=== PATIENT | male | born 1930 | race Hispanic/Latino ===

== ENCOUNTER 2017-12-27 17:50 | Inpatient (IN) | payer MEDICARE, OTHER ==
[~2017-12-27] VITALS: Ht 175.3 cm; Wt 94.8 kg
[~2017-12-27 17:50] MED LIST: AMLODIPINE BESYL5 MG PO; FLAGYL250 MG PO; HUMULIN R100 UNIT/2; LOPRESSOR25 MG PO; LOSARTAN POTASS25 MG PO; NORCO 10-325 T1 EACH PO; PREDNISONE5 MG PO; TAMSULOSIN HCL0.4 MG PO; ZYTIGA250 MG PO
[2017-12-27] MEDS ORDERED: METOPROLOL TARTRATE INJ 1 MG/ML VIAL IV NR ×2 (18:15→21:30)
[2017-12-27 18:27] VITALS: BP 124/81
[2017-12-27 18:30] VITALS: BP 117/85
[2017-12-27] MEDS ORDERED: VITAMIN D1000 UNI1 PO (18:42)
[2017-12-27 19:40] LABS: BASOPHILS % 0.4 % (0.0-1.0); EOSINOPHILS # (AUTO) 0.2 (0.0-0.4); HEMATOCRIT 41.5 % (38.2-49.6); HEMOGLOBIN 13.3 g/dL (14.0-18.0); LYMPHOCYTES # (AUTO) 1.1 (1.0-3.2); LYMPHOCYTES % 14.3 % (18.0-39.1); MEAN CORPUSCULAR HEMOGLOBIN 29.4 pg (28-32); MEAN CORPUSCULAR VOLUME 91.8 fL (81-99); MONOCYTES # (AUTO) 0.5 (0.2-0.8); MONOCYTES % 6.4 % (4.4-11.3); NEUTROPHILS # (AUTO) 5.6 (2.1-6.9); NEUTROPHILS % 75.5 % (38.7-80.0); PLATELET COUNT 229 x10e3/uL (140-360); RED BLOOD COUNT 4.52 x10e6/uL (4.3-5.7); RED CELL DISTRIBUTION WIDTH 15.9 % (11.7-14.4)
[2017-12-27 20:00] VITALS: BP_SYST 114; BP_SYST 117; BP_DIAS 80; BP_DIAS 85
[2017-12-27 20:00] LABS: ALBUMIN/GLOBULIN RATIO 0.9 (0.8-2.0); CALCIUM 9.4 mg/dL (8.4-10.2); CREATININE, SERUM 1.48 mg/dL (0.72-1.25)
[2017-12-27 20:21] LABS: FREE THYROXINE INDEX 2.6912 (1.4-3.8); THYROID STIMULATING HORMONE 1.464 uIU/mL (0.350-4.940)
[2017-12-27] MEDS ORDERED: METOPROLOL TARTRATE 50 MG TAB PO SCH (21:00)
--- NOTE | 2017-12-27 22:31 | Diagnostic Imaging Report ---
EXAM: CHEST SINGLE (PORTABLE), AP 1 view INDICATION: Congestive heart failure COMPARISON: None FINDINGS: LINES/TUBES: None LUNGS: No consolidations or edema. PLEURA: No effusions or pneumothorax. HEART AND MEDIASTINUM: Stable appearance. BONES AND SOFT TISSUES: No acute findings. IMPRESSION: No pulmonary edema. Signed by: Dr. Lilia Dailey M.D. on 12/27/2017 10:27 PM
[2017-12-27 23:00] VITALS: BP 123/92
[2017-12-28] VITALS (14 sets, daily range): BP systolic 117–171; BP diastolic 73–117
[2017-12-28 05:48] LABS: BASOPHILS % 0.5 % (0.0-1.0); EOSINOPHILS # (AUTO) 0.3 (0.0-0.4); EOSINOPHILS % 4.6 % (0.0-6.0); HEMATOCRIT 41.2 % (38.2-49.6); HEMOGLOBIN 13.2 g/dL (14.0-18.0); LYMPHOCYTES % 17.7 % (18.0-39.1); MEAN CORPUSCULAR HEMOGLOBIN 29.3 pg (28-32); MEAN CORPUSCULAR VOLUME 91.6 fL (81-99); MONOCYTES # (AUTO) 0.4 (0.2-0.8); MONOCYTES % 6.9 % (4.4-11.3); NEUTROPHILS # (AUTO) 4.1 (2.1-6.9); PLATELET COUNT 234 x10e3/uL (140-360)
[2017-12-28 06:11] LABS: ANION GAP 15.5 mmol/L (8-16); CALCIUM 9.4 mg/dL (8.4-10.2); CREATININE, SERUM 1.25 mg/dL (0.72-1.25); POTASSIUM 3.5 mmol/L (3.5-5.1)
[2017-12-28 06:24] LABS: CREATINE KINASE MB 0.9 ng/mL (0-5.0)
[2017-12-28] MEDS: METOPROLOL TARTRATE 50 MG TAB PO SCH ×2 (08:05→22:02)
[2017-12-28] MEDS ORDERED: METOPROLOL TART50 MG PO (12:59)
[2017-12-28] MEDS: HYDROCODONE/APAP 10MG-325MG TAB PO SCH ×3 (13:05→22:13)
[2017-12-28 13:28] LABS: ABG HCO3 29 mmol/L (23-28); ABG PCO2 42 mmHg (41-51); ABG PH 7.44 (7.31-7.41); ABG PO2 65 mmHg (80-105)
[2017-12-28] MEDS ORDERED: METOPROLOL TARTRATE INJ 1 MG/ML VIAL IV ONE (13:30)
[2017-12-28] MEDS ORDERED: POTASSIUM CHLORIDE 20 MEQ TAB CR PO ONE (13:30)
[2017-12-28] MEDS ORDERED: ENOXAPARIN 30 MG/0.3 ML SYR SC SCH (17:00)
[2017-12-28] MEDS ORDERED: HYDROCHLOROTHIAZIDE 25 MG TAB PO ONE (17:00)
[2017-12-29 00:08] VITALS: BP 143/68
[2017-12-29] MEDS: HYDROCODONE/APAP 10MG-325MG TAB PO SCH ×4 (03:43→13:11)
[2017-12-29 05:06] LABS: BASOPHILS % 0.8 % (0.0-1.0); EOSINOPHILS # (AUTO) 0.3 (0.0-0.4); EOSINOPHILS % 5.5 % (0.0-6.0); HEMATOCRIT 39.7 % (38.2-49.6); HEMOGLOBIN 12.6 g/dL (14.0-18.0); LYMPHOCYTES # (AUTO) 1.1 (1.0-3.2); LYMPHOCYTES % 22.5 % (18.0-39.1); MEAN CORPUSCULAR HGB CONC 31.7 g/dL (31-35); MEAN CORPUSCULAR VOLUME 91.5 fL (81-99); MONOCYTES # (AUTO) 0.4 (0.2-0.8); MONOCYTES % 8.1 % (4.4-11.3); NEUTROPHILS # (AUTO) 2.9 (2.1-6.9); NEUTROPHILS % 62.5 % (38.7-80.0); PLATELET COUNT 229 x10e3/uL (140-360); RED BLOOD COUNT 4.34 x10e6/uL (4.3-5.7); RED CELL DISTRIBUTION WIDTH 15.7 % (11.7-14.4)
[2017-12-29 05:35] LABS: CREATINE KINASE MB 0.8 ng/mL (0-5.0)
[2017-12-29 05:58] LABS: ANION GAP 14.6 mmol/L (8-16); BLOOD UREA NITROGEN 16 mg/dL (7-26); BUN/CREATININE RATIO 15 (6-25); CALCIUM 9.1 mg/dL (8.4-10.2); CARBON DIOXIDE 24 mmol/L (22-29); CHLORIDE 105 mmol/L (98-107); CREATININE, SERUM 1.07 mg/dL (0.72-1.25); EST GLOMERULAR FILTRATION RATE > 60 ML/MIN (60-); GLUCOSE 128 mg/dL (74-118); POTASSIUM 3.6 mmol/L (3.5-5.1); SODIUM 140 mmol/L (136-145)
[2017-12-29 06:58] VITALS: BP 147/91
[2017-12-29 07:50] VITALS: BP 147/91
[2017-12-29] MEDS: METOPROLOL TARTRATE 50 MG TAB PO SCH (08:46)
[2017-12-29] MEDS ORDERED: TAMSULOSIN HCL 0.4 MG CAP PO SCH (09:00)
[2017-12-29] MEDS ORDERED: PREDNISONE 10 MG TAB PO SCH (09:00)
[2017-12-29] MEDS ORDERED: HYDROCHLOROTHIAZIDE 25 MG TAB PO SCH (09:00)
[2017-12-29] MEDS ORDERED: POTASSIUM CHLORIDE 10 MEQ TABCR PO SCH (09:00)
[2017-12-29] MEDS ORDERED: CHOLECALCIFEROL 1,000 UNIT TAB PO SCH (09:00)
[2017-12-29 11:30] VITALS: BP 119/86
--- NOTE | 2017-12-30 17:31 | Discharge Summary ---
CLINICAL HISTORY: This is an 87-year-old white man admitted via my office because of shortness of breath with a heart rate of 133 to 150 beats per minute, which was thought to be supraventricular tachycardia or 2:1 atrial flutter. This patient's ejection fraction is normally in the range of 60% to 65%. He does have a dilated aortic root measuring 3.9 cm with mild aortic regurgitation. This was found not to be responsible for his complaints of chest pains. His O2 saturation on room air, however, remained at 97%. He is obese, elderly, and appears to be quite short of breath in my office. We, therefore, recommended that he be hospitalized. Please refer to my previous dictation concerning details of his history and physical at the time of admission. Following admission, we increased his metoprolol from 25 mg b.i.d. to 50 mg b.i.d. Additionally, we gave him IV metoprolol on several occasions to bring the heart rate down to the 80 to 90 range. He was symptomatically improved. His saturation remained stable. He was in a sinus rhythm and was able to get around a little bit over the weekend with the help of nurse. He was anxious to go home. His chest x-ray showed no pulmonary edema. He is, therefore, discharged on his previous medications with the metoprolol increased to 50 mg b.i.d. Other medications included tamsulosin 0.4 mg, prednisone 10 mg, hydrocodone/acetaminophen, and Zytiga 250 mg 4 tablets p.o. daily. He was given activity, diet, medication and followup instructions and will see Dr. Hathaway and me in 1 week. DISCHARGE DIAGNOSES: 1. Supraventricular tachycardia with ventricular rates of 133 to 150 beats per minute causing symptoms of shortness of breath, improved with increasing metoprolol as well as IV metoprolol. 2. Left ventricular ejection fraction in the range of 60% to 65%. 3. Dilated aortic root at 3.9 cm with mild aortic regurgitation. 4. Chest discomfort that may be related to tachycardia, also consider coronary artery disease. 5. Hypertension. 6. History of prostate cancer. 7. Peripheral vascular disease. 8. Anemia with history of a blood transfusion 2016 and with history of bone marrow biopsy. LEONEL JEANG, MD Job#: [id number] EV cc:KEYANNA HATHAWAY M.D.
--- NOTE | 2018-01-02 11:19 | History and Physical ---
CLINICAL HISTORY: This is an 87-year-old man admitted via my office because of worsening complaints of chest pains with exertion to the point that over the past 3 days he is only able to walk maybe 10 feet before getting short of breath. His heart rate in my office was in the range of 133 to 150 beats per minute, possibly in the multi-atrial tachycardia rhythm or supraventricular tachycardia rhythm or 2:1 atrial flutter. After discussing the various treatment alternatives, we elected to admit him to the hospital. In March 2017 his echocardiogram had showed ejection fraction 60% to 65%. He does have mildly enlarged aortic root measuring 3.9 cm with mild aortic regurgitation. He has history of atypical chest pains dating back to 2005. His nuclear stress test in 2016 was negative. He has history of multifocal atrial tachycardia but it was never this fast. He has worked in the [employer] for many years, but he only has smoked for 1 to 4 years. There is history of prostate cancer without metastases. Medications at home included Zytiga 250 mg 4 tablets p.o. daily, hydrocodone-acetaminophen 10/325 mg p.o. q.6 h., tamsulosin 0.4 mg p.o. daily, prednisone 10 mg p.o. daily, metoprolol tartrate 25 mg p.o. b.i.d. with food, vitamin D. PAST MEDICAL HISTORY: Is remarkable for the prostate cancer mentioned above, peripheral vascular disease, anemia, status post transfusion 4 units in the past. Bone marrow exam apparently was done once upon a time with unknown results. ALLERGIES: NONE KNOWN. PAST SURGERY: Included bilateral knee replacement 2005, cataract surgery 1984, orchiectomy, prostate cancer 2003, kidney stone with one functioning kidney, kidney surgery 2004, previous knee surgery dating back to 1999. HOSPITALIZATION: None other. FAMILY HISTORY: Father from old age. Mother unknown. Sibling alive at age 99. Brother had myocardial infarction, from myocardial infarction in his 90s. PERSONAL AND SOCIAL HISTORY: He smoked for 1 to 4 years, currently nonsmoker. REVIEW OF SYSTEMS: Noncontributory. PHYSICAL EXAMINATION GENERAL: He is elderly, appears to be chronically ill, somewhat short of breath at rest. VITAL SIGNS: Stable. Heart rate is 133, blood pressure 100/60, weighs pounds. CARDIAC: Jugular veins are not well seen. S1 and S2 are rapid and distant. There is a 1/6 systolic murmur. LUNGS: Show minimal crackles. ABDOMEN: Soft. Bowel sounds are present. EXTREMITIES: Show no cyanosis, clubbing or edema. LABORATORY STUDIES: Still pending. IMPRESSION 1. Multifocal atrial tachycardia, supraventricular tachycardia, rule out atrial flutter with 2:1 ventricular response with a ventricular rate 133 to 150 beats per minute. 2. History of multifocal atrial tachycardia. 3. Severe dyspnea with exertion with history of blood transfusion. 4. Rule out anemia. 5. Mild aortic regurgitation. 6. Dilated aortic root measuring 3.9 cm. 7. History of hypertension. 8. Advanced age. RECOMMENDATION: Hospitalization. Increase metoprolol including metoprolol IV to slow ventricular rate. Continue cardiac monitoring. Diuretics as needed. Job#: [id number] EV cc:KEYANNA SEQUEIRA MD
== END 2017-12-29 14:19 | disposition home or self-care (01) | DRG 310 ==
LOC: IMCU 17:50
PROVIDERS: ADMIT Internal Medicine Cardiovascular Disease; ATTEND Internal Medicine Cardiovascular Disease
DX: I47.1 Supraventricular tachycardia (principal); I48.92 Unspecified atrial flutter; I35.1 Nonrheumatic aortic (valve) insufficiency; Z79.01 Long term (current) use of anticoagulants; Z87.891 Personal history of nicotine dependence; I10 Essential (primary) hypertension; I73.9 Peripheral vascular disease, unspecified; D64.9 Anemia, unspecified; I77.819 Aortic ectasia, unspecified site; R07.9 Chest pain, unspecified; E66.9 Obesity, unspecified; Z68.30 Body mass index [BMI] 30.0-30.9, adult
CPT/HCPCS: 36415; 36600; 71045; 80048; 80053; 82550; 82553; 82805; 84436; 84443; 84479; 84484; 85025; 93005; J1650

== ENCOUNTER 2018-11-14 16:32 | Inpatient (IN) | payer MEDICARE, OTHER ==
[~2018-11-14] VITALS: Ht 175.3 cm; Wt 106.8 kg
[~2018-11-14 16:32] MED LIST changes: +METOPROLOL TART50 MG PO; +VITAMIN D1000 UNI1 PO
--- OUTSIDE RECORDS SUMMARY | 2018-11-14 16:35 | XMS REPORT ---
Author [facility] Address Unknown Phone Unavailable Care Team Providers Care Television Station Manager Name Role Phone Analia RANDLE Unavailable Unavailable Problems This patient has no known problems. Allergies, Adverse Reactions, Alerts This patient has no known allergies or adverse reactions. Medications This patient has no known medications. Results Test Description Test Time Test Comments Text Results Atomic Results Result Comments CHEST SINGLE (PORTABLE) 2017-12-27 22:27:00 [place] [address] Patient Name: CARRI PDARON MR #: [id number] : 1930 Age/Sex: 87/M Req #: [id number] Adm Physician: LEONEL RANDLE MD Ordered by: LEONEL RANDLE MD Report #: [id number] Location: [facility] Room/Bed: [place] [address] Procedure: [id number] DX/CHEST SINGLE (PORTABLE) Exam Date: 12/27/17 Exam Time: 2143 REPORT STATUS: Signed EXAM: CHEST SINGLE (PORTABLE), AP 1 view INDICATION: Congestive heart failure COMPARISON: None FINDINGS: LINES/TUBES: None LUNGS: No consolidations or edema. PLEURA: No effusions or pneumothorax. HEART AND MEDIASTINUM: Stable appearance. BONES AND SOFT TISSUES: No acute findings. IMPRESSION: No pulmonary edema. Signed by: Dr. Margaret Dailey M.D. on 12/27/2017 10:27 PM Dictated By: MARGARET DAILEY MD 26 Transcribed By: JORGE A on 12/27/172226 COPY TO: LEONEL RANDLE MD
--- NOTE | 2018-11-14 17:25 | NUR ---
STRAIGHT CATH INSERTED VIA ASEPTIC TECHNIQUE FOR UA FOR MD ORDERS; PT URINE OUTPUT APPROX 20 CC; URINE COLLECTED AND SENT TO LAB
[2018-11-14] MEDS ORDERED: METOPROLOL TART25 MG PO (17:53)
[2018-11-14] MEDS ORDERED: TYLENOL WITH C1 EACH PO (17:55)
[2018-11-14 18:11] LABS: BASOPHILS % 0.4 % (0.0-1.0); EOSINOPHILS # (AUTO) 0.2 (0.0-0.4); EOSINOPHILS % 2.4 % (0.0-6.0); HEMATOCRIT 38.3 % (38.2-49.6); HEMOGLOBIN 11.3 g/dL (14.0-18.0); LYMPHOCYTES # (AUTO) 0.6 (1.0-3.2); LYMPHOCYTES % 7.1 % (18.0-39.1); MEAN CORPUSCULAR HEMOGLOBIN 25.1 pg (28-32); MEAN CORPUSCULAR HGB CONC 29.5 g/dL (31-35); MEAN CORPUSCULAR VOLUME 84.9 fL (81-99); MONOCYTES # (AUTO) 0.3 (0.2-0.8); MONOCYTES % 3.8 % (4.4-11.3); NEUTROPHILS # (AUTO) 7.8 (2.1-6.9); NEUTROPHILS % 85.6 % (38.7-80.0); PLATELET COUNT 329 x10e3/uL (140-360); RED BLOOD COUNT 4.51 x10e6/uL (4.3-5.7)
[2018-11-14 18:12] LABS: BILIRUBIN,URINE NEGATIVE (NEGATIVE); CLARITY,URINE SL CLOUDY (CLEAR); COLOR,URINE YELLOW (YELLOW); KETONES,URINE NEGATIVE (NEGATIVE); LEUKOCYTE ESTERASE ,URINE SMALL (NEGATIVE); NITRITE,URINE POSITIVE (NEGATIVE); PROTEIN,URINE DIPSTICK 1+ (NEGATIVE); URINE UROBILINOGEN 1 mg/dL (0.2 - 1)
[2018-11-14 18:15] LABS: INR 0.88; PROTHROMBIN TIME 12.4 seconds (11.9-14.5)
[2018-11-14 18:16] LABS: PARTIAL THROMBOPLASTIN TIME 23.5 seconds (23.8-35.5)
[2018-11-14 18:24] LABS: AMORPHOUS SEDIMENT,URINE FEW (FEW); BACTERIA,URINE MANY /HPF; EPITHELIAL CELLS,URINE FEW /LPF; HYALINE CASTS 0-1 (0-1); MUCUS,URINE MODERATE (RARE)
[2018-11-14 18:25] LABS: ALBUMIN 3.2 g/dL (3.5-5.0); ALKALINE PHOSPHATASE 114 IU/L (40-150); ANION GAP 14.8 mmol/L (8-16); BLOOD UREA NITROGEN 24 mg/dL (7-26); BUN/CREATININE RATIO 18 (6-25); CALCIUM 8.9 mg/dL (8.4-10.2); CARBON DIOXIDE 28 mmol/L (22-29); CHLORIDE 100 mmol/L (98-107); CREATININE, SERUM 1.35 mg/dL (0.72-1.25); EST GLOMERULAR FILTRATION RATE 50 ML/MIN (60-); GLUCOSE 130 mg/dL (74-118); POTASSIUM 3.8 mmol/L (3.5-5.1); SODIUM 139 mmol/L (136-145)
[2018-11-14 18:31] LABS: ALANINE AMINOTRANSFERASE < 6 IU/L (0-55)
[2018-11-14] MEDS ORDERED: SODIUM CHLORIDE 0.9% 1000ML 1,000 ML IV SCH (18:45)
--- NOTE | 2018-11-14 19:00 | NUR ---
REPORT FROM JOLANTA STATON
[2018-11-14] MEDS ORDERED: CEFTRIAXONE SOD 1 GM/NS 50 ML 50 ML IV SCH (19:15)
[2018-11-14] MEDS ORDERED: HYDROCODONE/APAP 5MG-325MG TAB PO PRN (21:45)
--- NOTE | 2018-11-14 22:00 | NUR ---
Patient arrived on the unit as new admit from ED to room 296 with adm dx of cellulitis (on left hand, left arm and left upper arm) and UTI. Pt alert and oriented x3 and extremely weak at this time. Left UE elevated with pillow. Pt on IVF (NS at 125ml/hr) and on scheduled IV antibiotics. Daughters at bedside. V/S stable. Left hand with skin tear and blister noted on left elbow both open to air. Call briones within reach.
[2018-11-14 22:15] VITALS: BP 124/65
[2018-11-14] MEDS: SODIUM CHLORIDE 0.9% 1000ML 1,000 ML IV SCH (22:25)
[2018-11-14] MEDS: CEFAZOLIN SOD 1 GM/NS 50ML 50 ML IV SCH (22:29)
[2018-11-14 22:30] VITALS: BP 124/65
--- NOTE | 2018-11-14 22:50 | NUR ---
Called and spoke with Rebecca Boss (on-call ENVIRONMENTAL SERVICES TECH for Dr. Barbour) to inform patient's daughter (Kaur) request for patient to take some home meds. Also informed Lactic acid level at latest was 29.2. Rebecca re-ordered home meds except for Prednisone and ordered not to give Metoprolol tonight. Rebecca also aware of lactic acid level and no further orders given.
[2018-11-14] MEDS ORDERED: ACETAMINOPHEN/CODEINE 300MG - 30MG TAB PO PRN (23:00)
[2018-11-14] MEDS: TAMSULOSIN HCL 0.4 MG CAP PO SCH (23:25)
[2018-11-15] VITALS (7 sets, daily range): BP systolic 114–152; BP diastolic 61–81
[2018-11-15] MEDS: SODIUM CHLORIDE 0.9% 1000ML 1,000 ML IV SCH (05:46)
[2018-11-15] MEDS: CEFAZOLIN SOD 1 GM/NS 50ML 50 ML IV SCH ×3 (05:51→22:00)
[2018-11-15] MEDS ORDERED: SODIUM CHLORIDE 0.9% 250ML 250 ML IV ONE (06:15)
[2018-11-15 06:38] LABS: BASOPHILS % 0.3 % (0.0-1.0); EOSINOPHILS # (AUTO) 0.2 (0.0-0.4); EOSINOPHILS % 2.4 % (0.0-6.0); HEMATOCRIT 34.8 % (38.2-49.6); LYMPHOCYTES # (AUTO) 0.7 (1.0-3.2); LYMPHOCYTES % 8.9 % (18.0-39.1); MEAN CORPUSCULAR HEMOGLOBIN 24.4 pg (28-32); MEAN CORPUSCULAR HGB CONC 28.7 g/dL (31-35); MEAN CORPUSCULAR VOLUME 85.1 fL (81-99); MONOCYTES # (AUTO) 0.2 (0.2-0.8); MONOCYTES % 3.2 % (4.4-11.3); NEUTROPHILS # (AUTO) 6.3 (2.1-6.9); NEUTROPHILS % 84.7 % (38.7-80.0); PLATELET COUNT 223 x10e3/uL (140-360); RED BLOOD COUNT 4.09 x10e6/uL (4.3-5.7); RED CELL DISTRIBUTION WIDTH 17.2 % (11.7-14.4)
[2018-11-15 06:54] LABS: ALBUMIN 2.5 g/dL (3.5-5.0); ALBUMIN/GLOBULIN RATIO 0.9 (0.8-2.0); ALKALINE PHOSPHATASE 93 IU/L (40-150); ANION GAP 10.9 mmol/L (8-16); BLOOD UREA NITROGEN 18 mg/dL (7-26); BUN/CREATININE RATIO 16 (6-25); CARBON DIOXIDE 26 mmol/L (22-29); CHLORIDE 107 mmol/L (98-107); EST GLOMERULAR FILTRATION RATE > 60 ML/MIN (60-); GLUCOSE 138 mg/dL (74-118); POTASSIUM 3.9 mmol/L (3.5-5.1); SODIUM 140 mmol/L (136-145)
[2018-11-15 06:59] LABS: ALANINE AMINOTRANSFERASE < 6 IU/L (0-55)
--- NOTE | 2018-11-15 07:00 | NUR ---
RECEIVED PATIENT IN BEDSIDE REPORT. PATIENT IS RESTING IN BED, RESPIRATIONS EVEN AND NON-LABORED. L HAND HAS SCABBED ABRASION , NO DRAINAGE NOTED. REDNESS AND SWELLING NOTED TO L ARM. FAMILY MEMBERS AT BEDSIDE. BED LOCKED IN LOWEST POSITION, SIDE RAILS UPX2, CALL LIGHT IN REACH.
[2018-11-15 07:28] LABS: PLATELET ESTIMATE ADEQUATE
[2018-11-15 07:29] LABS: ANISOCYTOSIS SLIGHT; HYPOCHROMASIA SLIGHT; PLATELET MORPHOLOGY COMMENT NORMAL
[2018-11-15] MEDS: METOPROLOL TARTRATE 25 MG TAB PO SCH ×2 (08:18→17:06)
[2018-11-15] MEDS: ACETAMINOPHEN 325 MG TAB PO PRN (08:18)
[2018-11-15] MEDS: ZYTIGA 1000 MG PO SCH (10:40)
[2018-11-15] MEDS ORDERED: ONDANSETRON HCL INJ 2MG/ML 2ML 2 MG/ML VIAL IV PRN (11:00)
[2018-11-15] MEDS ORDERED: ACETAMINOPHEN 325 MG TAB PO PRN (11:00)
[2018-11-15] MEDS ORDERED: HYDRALAZINE HCL 20 MG/ML VIAL IV PRN (11:00)
--- NOTE | 2018-11-15 11:05 | NUR ---
SCDS APPLIED AT THIS TIME, EDUCATED ON THE PURPOSE OF SCDS. ICE APPLIED TO L ARM TO SOOTHE PAIN AND HEAT FROM CELLULITIS. TOLD FAMILY MEMBER WE WILL LEAVE IT ON FOR A SHORT PERIOD OF TIME AND THEN REMOVE TO PRESERVE HEALTHY CIRCULATION, FAMILY MEMBER VERBALIZED UNDERSTANDING.
--- NOTE | 2018-11-15 11:40 | NUR ---
SPOKE WITH PA COVERING FOR MD JOHNSON, PAULIE WILKINSON, STATED THAT SHE IS COVERING FOR MD JOHNSON BUT DOES NOT HAVE PRIVILEGES AT THIS HOSPITAL, MD JOHNSON UNAVAILABLE UNTIL SATURDAY. INFORMED HOUSE DESIGNER WILFRED, DOES NOT WANT TO CONSULT ANYONE ELSE AT THIS TIME.
--- NOTE | 2018-11-15 16:03 | NUR ---
PATIENT SLEEPING MOST OF THE DAY. FAMILY MEMBERS STATE HE HAS NOT SLEPT WELL IN WEEKS. HOB ELEVATION ASSISTING PATIENT TO SLEEP SOUNDLY. SCDS ACTIVE. ALTERNATING PRESSURE BED PUMP ACTIVE.
[2018-11-15] MEDS: FAMOTIDINE 20 MG TAB PO SCH (17:06)
[2018-11-15] MEDS: OYST-CAL-D 500MG TABLET PO SCH (17:07)
--- NOTE | 2018-11-15 17:13 | NUR ---
Nutrition Screen Note RD Recommendation for Physician: 1.Continue with current diet order Plan of Care: RD following, monitoring for tolerance and adequacy Nutrition reason for involvement: Nutrition Risk Trigger Primary Diagnose(s):Cellulitis, UTI PMH: CHF, Hypertension, Peripheral vascular disease, prostate cancer without metastases Ht: 69in Wt: 220lbs BMI: 32.48kg/m2 IBW: 160lb +/- 10% RD Assessment: (11/15) Chart reviewed. Labs and meds reviewed. Patient is a 88 y/o M who was admitted for dx of cellulitis (on left hand, left arm and left upper arm) and UTI. Patient having a procedure done during time of visit, daughter was able to provide food and nutrition related history for patient. Patient agreeable and presented no acute complaints. Daughter reports great intake and appetite at home. Denied any GI symptoms or any difficulties with chewing or swallowing. Reports patients weight has been mostly stable. Will continue to follow and monitor as needed. Current Diet: Cardiac Diet Malnutrition Evaluation (11/15) The patient does not meet criteria for a specified degree of malnutrition at this time. Will re-evaluate at follow-up as appropriate. Diet Education Needs Assessment: Diet education not indicated. Nutrition Care Level: LOW Signed: Coral Zavala, MS, RDN, LD
--- NOTE | 2018-11-15 19:00 | NUR ---
Pt alert and oriented x3 and extremely weak at this time. Left UE elevated with pillow. Pt on IVF (NS at 125ml/hr) and on scheduled IV antibiotics. Daughters at bedside. V/S stable. Left hand with skin tear and blister noted on left elbow both open to air. Call briones within reach.
[2018-11-15] MEDS: TAMSULOSIN HCL 0.4 MG CAP PO SCH (20:41)
[2018-11-15] MEDS ORDERED: SODIUM CHLORIDE 0.9% 250ML 250 ML ONE (21:38)
[2018-11-16] VITALS (7 sets, daily range): BP systolic 102–142; BP diastolic 54–76
[2018-11-16] MEDS: ACETAMINOPHEN 325 MG TAB PO PRN ×4 (00:03→23:25)
--- NOTE | 2018-11-16 05:30 | NUR ---
Bed bath provided for patient by [employer] FOUNDRY LABORER (Leora). Diaper was also changed.
[2018-11-16] MEDS: CEFAZOLIN SOD 1 GM/NS 50ML 50 ML IV SCH ×3 (06:27→22:04)
[2018-11-16] MEDS: FAMOTIDINE 20 MG TAB PO SCH ×2 (06:27→17:02)
[2018-11-16 07:27] LABS: BASOPHILS % 0.4 % (0.0-1.0); EOSINOPHILS # (AUTO) 0.1 (0.0-0.4); EOSINOPHILS % 1.7 % (0.0-6.0); HEMATOCRIT 36.9 % (38.2-49.6); HEMOGLOBIN 10.4 g/dL (14.0-18.0); LYMPHOCYTES # (AUTO) 0.9 (1.0-3.2); LYMPHOCYTES % 12.7 % (18.0-39.1); MEAN CORPUSCULAR HEMOGLOBIN 24.4 pg (28-32); MEAN CORPUSCULAR HGB CONC 28.2 g/dL (31-35); MEAN CORPUSCULAR VOLUME 86.6 fL (81-99); MONOCYTES # (AUTO) 0.3 (0.2-0.8); MONOCYTES % 4.2 % (4.4-11.3); NEUTROPHILS # (AUTO) 5.6 (2.1-6.9); NEUTROPHILS % 80.7 % (38.7-80.0); PLATELET COUNT 225 x10e3/uL (140-360); RED BLOOD COUNT 4.26 x10e6/uL (4.3-5.7); RED CELL DISTRIBUTION WIDTH 17.2 % (11.7-14.4)
[2018-11-16 07:43] LABS: ANION GAP 11.8 mmol/L (8-16); CALCIUM 8.6 mg/dL (8.4-10.2); CREATININE, SERUM 1.23 mg/dL (0.72-1.25); POTASSIUM 3.8 mmol/L (3.5-5.1)
--- NOTE | 2018-11-16 08:56 | NUR ---
rechecked temp 98.6, patient not in any distress, up in bed eating breakfast, call light in reach
[2018-11-16] MEDS: ZYTIGA 1000 MG PO SCH (09:00)
[2018-11-16] MEDS: METOPROLOL TARTRATE 25 MG TAB PO SCH ×2 (09:17→17:03)
[2018-11-16] MEDS: OYST-CAL-D 500MG TABLET PO SCH ×2 (09:17→17:03)
--- NOTE | 2018-11-16 13:43 | Consultation ---
DATE OF CONSULTATION: 11/16/2018 Urology Consultation Consultation is called by Dr. Barbour. CHIEF UROLOGIC COMPLAINT AND REASON FOR CONSULTATION: Hydronephrosis and prostate cancer. HISTORY OF PRESENT ILLNESS: Mr. Brar is a very pleasant 88-year-old male patient. He denies recent urologist, who has seen Dr. Juarez in the past. 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 The patient denied dysuria. Denied gross hematuria. PAST MEDICAL HISTORY: As above with UPJ poorly functioning kidney, kidney stones, status post left stent replacement and removal by Larry in approximately 2014. Prostate cancer status post surgery in 2003, status post orchiectomy, peripheral vascular disease, chronic anemia. MEDICATIONS: Please see MAR. ALLERGIES: NKDA. SOCIAL HISTORY: Denied smoking or drinking. FAMILY HISTORY: Denied urologic stones or malignancies. REVIEW OF SYSTEMS: Noncontributory, other than problems mentioned above for 12 organ systems. PHYSICAL EXAMINATION: GENERAL: Elderly male, in no acute distress. VITAL SIGNS: Currently, afebrile. Stable vital signs. HEENT: Sclerae anicteric. NECK: Supple. BACK: Without costovertebral angle tenderness bilaterally. ABDOMEN: Soft. It is nontender. It is nondistended. No palpable mass. No palpable hernias. No palpable adenopathy. : Normal external genitalia. EXTREMITIES: No edema. NEURO: Moving all four extremities. PSYCH: Alert and mood appropriate. SKIN: Intact. Normal color. LABORATORY DATA: Previous CAT scans noted right hydronephrosis, left stent. Hemoglobin 10, hematocrit 36, and platelet count 225,000, white count 6900. Sodium 137, potassium 3.8, chloride 105, bicarb 24, BUN 15, creatinine 1.2, glucose 125. IMPRESSION: 1. Prostate cancer. 2. Right-sided hydronephrosis. 3. Right UPJ obstruction. 4. Acute versus chronic renal insufficiency. 5. Anemia. PLAN: Consider a KUB and ultrasound to follow the function and stones. Thank you for allowing me to participate in the care of your patient. I will be happy to follow along with you. Enzo Guo MD ES/MODL /[id number] cc: Alexis Barbour MD
--- NOTE | 2018-11-16 15:44 | NUR ---
Up on assessment swelling and fluid filled blisters noted on both forearms , Greer APODACA notified when he here for rounds, no new orders
[2018-11-16] MEDS: ASCORBIC ACID 500 MG TAB PO SCH (17:03)
--- NOTE | 2018-11-16 19:30 | NUR ---
Pt alert and oriented x3 and extremely weak at this time. Left UE elevated with pillow. Right UE also elevated with pillows. Pt on scheduled IV antibiotics. Daughters at bedside. V/S stable. Left hand with skin tear and blister noted on left elbow both open to air. Call briones within reach.
[2018-11-16] MEDS: TAMSULOSIN HCL 0.4 MG CAP PO SCH (20:16)
[2018-11-17] VITALS (8 sets, daily range): BP systolic 104–138; BP diastolic 44–58
[2018-11-17] MEDS: CEFAZOLIN SOD 1 GM/NS 50ML 50 ML IV SCH ×2 (05:30→14:37)
[2018-11-17] MEDS: FAMOTIDINE 20 MG TAB PO SCH ×2 (06:19→18:44)
[2018-11-17 06:22] LABS: BASOPHILS % 0.5 % (0.0-1.0); EOSINOPHILS # (AUTO) 0.1 (0.0-0.4); EOSINOPHILS % 3.2 % (0.0-6.0); HEMATOCRIT 33.3 % (38.2-49.6); HEMOGLOBIN 9.9 g/dL (14.0-18.0); LYMPHOCYTES # (AUTO) 0.6 (1.0-3.2); LYMPHOCYTES % 13.8 % (18.0-39.1); MEAN CORPUSCULAR HEMOGLOBIN 24.8 pg (28-32); MEAN CORPUSCULAR HGB CONC 29.7 g/dL (31-35); MEAN CORPUSCULAR VOLUME 83.5 fL (81-99); MONOCYTES # (AUTO) 0.2 (0.2-0.8); MONOCYTES % 5.5 % (4.4-11.3); NEUTROPHILS # (AUTO) 3.3 (2.1-6.9); NEUTROPHILS % 76.5 % (38.7-80.0); PLATELET COUNT 240 x10e3/uL (140-360); RED BLOOD COUNT 3.99 x10e6/uL (4.3-5.7); RED CELL DISTRIBUTION WIDTH 17.1 % (11.7-14.4)
[2018-11-17 06:37] LABS: ANION GAP 12.4 mmol/L (8-16); CALCIUM 8.5 mg/dL (8.4-10.2); CREATININE, SERUM 1.29 mg/dL (0.72-1.25); PHOSPHORUS 2.4 MG/DL (2.3-4.7); POTASSIUM 3.4 mmol/L (3.5-5.1)
--- NOTE | 2018-11-17 07:15 | Diagnostic Imaging Report ---
RADIOGRAPH(S) OF THE ABDOMEN AND PELVIS, 2 view(s) HISTORY: Cellulitis, UTI, query kidney stone COMPARISON: Images from CT of the abdomen and pelvis January 14, 2015. FINDINGS: No specific evidence of obstruction or ileus. No definite urinary tract calcification. Subtle calcifications in the region of the proximal renal arteries, compatible with the atherosclerotic calcifications seen on the comparison CT. No definitive renal stone. The bones are partially obscured by stool and overlying bowel gas. Diffusely decreased mineralization of the osseous structures further limits bone detail. Multifocal degenerative changes, moderate to severe of the lumbosacral spine, sacroiliac joints, pubic symphysis. Radiopaque cement projects in the region of L1/L2, compatible with prior vertebral augmentation. IMPRESSION: 1. Nonobstructive bowel gas pattern. 2. No specific evidence of a renal stone. 3. Diffuse osseous demineralization. Signed by: Dr. Sreedhar Galindo D.O., M.M.M. on 11/17/2018 7:12 AM
--- NOTE | 2018-11-17 08:16 | NUR ---
The pt is in bed and responsive to verbal stimuli. The pt. denied pain or discomfort currently and has no procedures outstanding at this time.
[2018-11-17] MEDS: ZYTIGA 1000 MG PO SCH (09:58)
[2018-11-17] MEDS: METOPROLOL TARTRATE 25 MG TAB PO SCH ×2 (10:00→18:46)
[2018-11-17] MEDS: ASCORBIC ACID 500 MG TAB PO SCH ×2 (10:00→18:46)
[2018-11-17] MEDS: OYST-CAL-D 500MG TABLET PO SCH ×2 (10:00→18:46)
--- NOTE | 2018-11-17 10:25 | NUR ---
WOUND CARE NURSE INITIAL VISIT. 88 YEAR OLD MALE ADMITTED TO [facility] WITH DX OF CELLULITIS AND UTI. HEAD TO TOE SKIN ASSESSMENT PERFORMED TODAY. PT IS AAOX3, REQUIRES MAXIMUM ASSISTANCE TO REPOSITION. UPON ASSESSMENT PT PRESENTS WITH A 3.4X1.5X0.2CM WOUND TO LEFT HAND. DAUGHTER AT BEDSIDE STATES THAT HE HIT HIS HAND WITH FURNITURE AND DEVELOPED AN INFECTION. 80% GRANULAR. 4+ PITTING EDEMA AND CELLULITIS PRESENT TO LEFT UPPER EXTREMITY. PT ON IV ABX. THERE ARE NO OTHER AREAS OF CONCERN NOTED AT THIS TIME. LABS: WBC: 4.36 ALB: 2.5 GLUCOSE: 128 RECOMMENDATIONS: TURN PT EVERY TWO HOURS AND PRN. CONTINUE WITH ALTERNATING LOW AIR LOSS MATTRESS. PROVIDE PT WITH BILATERAL HEEL PROTECTORS AND PILLOW SUSPENSIONS. CLEAN LEFT HAND WOUND WITH NS, APPLY BACTROBAN AND COVER WITH XEROFORM GAUZE FOLLOWED BY 4X4 GAUZE, KERLIX AND TAPE. CHANGE DRESSING DAILY. THANKS FOR THIS CONSULTATION. Addendum: 11/17/18 at 1032 by Leana Cortez RN Amended: Links added.
[2018-11-17 11:19] LABS: MAGNESIUM 1.8 MG/DL (1.3-2.1)
[2018-11-17] MEDS ORDERED: PREDNISONE 5 MG TAB PO SCH (12:00)
--- NOTE | 2018-11-17 16:30 | NUR ---
The pt. is out of the room to radiology department.
--- NOTE | 2018-11-17 18:39 | NUR ---
The pt. returned from radiology and afternoon med pass completed.
--- NOTE | 2018-11-17 19:38 | NUR ---
PT IS RESTING IN BED WITH FAMILY AT BEDSIDE. RESPIRATION IS EVEN AND UNLABORED, NO DISTRESS NOTED. BED IN THE LOWEST POSITION, LOCKED, BED ALARM ON, AND CALL LIGHT WITHIN REACH. WILL CONTINUE TO MONITOR.
--- NOTE | 2018-11-17 20:20 | Diagnostic Imaging Report ---
Renal Scan with Lasix Washout Clinical information: 88 M with nonfunctioning kidney; UTI Technique: Following intravenous administration of 9.1 mCi of Tc-99m MAG3, dynamic images of the kidneys in the posterior projection were obtained through 40 minutes. Lasix 40 mg was administered intravenously at 15 minutes post injection of the tracer. Report: Left kidney: Perfusion of the left kidney is prompt. The left kidney is ptotic. The kidney kidney is small with a distorted reniform shape and narrowing of the lower pole. The contours are smooth. Extraction of tracer from the blood pool is decreased. Clearance of tracer from the renal parenchyma begins promptly but is not complete by the end of the study. The pelvicalyceal system is not dilated. Physiologic pooling of tracer is seen within the pelvicalyceal system. Some net drainage of tracer from the pelvicalyceal system is seen prior to administration of Lasix. No response to Lasix occurs; the slope of the renogram maintains its pre-Lasix slope. This may be related to the impaired function not being able to fill the pelvicalyceal system to near capacity. No significant stasis of tracer is seen within the left ureter. Right kidney: Perfusion to the right kidney is prompt. The right kidney is identified by comparison to CT abdo/pelvis without contrast from 01/14/2015. The right kidney has a distorted rounded shape. It sits more superiorly than the left kidney. It is quite a bit larger than the left kidney and appears to be comprised of multiple cysts or dilated calices. Extraction of tracer from the blood pool by the renal parenchyma is markedly decreased. Although there is perfused renal parenchyma, no significant clearance of tracer from the renal parenchyma is visualized. The renogram does show some but minimal downward slope. No tracer is seen in the pelvicalyceal system. No tracer is seen within the right ureter. Differential renal function: The left kidney contributes 64% of total renal function and the right kidney contributes 36% (normal 43-57%). Impression: 1. Moderately severe medical renal disease is present in the left kidney and this accounts for the decreased size of the kidney. No hydronephrosis is present. No physiologically significant obstruction of the renal collecting system is suspected although the Lasix washout method is not an appropriate assessment of obstruction because the kidney is too impaired to fill the pelvicalyceal system to near capacity. 2. The volume of renal parenchyma in the right kidney is considerably greater than the left kidney but extraction of tracer by the renal parenchyma is very poor, consistent with severe medical renal disease . This accounts for the decreased differential function of 36% even though the kidney is larger than the left. Visually, the differential function appears much lower. Based on the renogram, there is some excretion (clearance) of tracer from the renal parenchyma but it is minimal. The pelvicalyceal system cannot be adequately assessed due to the absence of filling of the pelvicalyceal system. Hydronephrosis, however, is not suspected. Obstruction cannot be assessed as no tracer pools in the pelvicalyceal system. 3. Signed by: Dr. Constance Zazueta M.D. on 11/17/2018 8:16 PM
[2018-11-17] MEDS ORDERED: VANCOMYCIN HCL 1.5 GM in SODIUM CHLORIDE 0.9% 250ML 300 ML IV SCH (21:00)
[2018-11-17] MEDS ORDERED: VANCOMYCIN 1GM/NS 250 ML 250 ML IV SCH (21:00)
[2018-11-17] MEDS ORDERED: POTASSIUM CHLORIDE 20 MEQ TAB CR PO ONE (21:15)
[2018-11-17] MEDS: TAMSULOSIN HCL 0.4 MG CAP PO SCH (21:16)
[2018-11-17] MEDS: PIPER-TAZ 3.375 GM 50 ML IV SCH (21:21)
[2018-11-17] MEDS ORDERED: VANCOMYCIN 500MG/NS 0.9% 100ML 100 ML IV ONE (21:45)
[2018-11-17] MEDS ORDERED: VANCOMYCIN 1GM/NS 250 ML 250 ML IV ONE (21:45)
[2018-11-17] MEDS: SODIUM CHLORIDE 0.9% 1000ML 1,000 ML IV SCH (22:48)
[2018-11-18] VITALS (8 sets, daily range): BP systolic 98–127; BP diastolic 49–57
[2018-11-18] MEDS: PIPER-TAZ 3.375 GM 50 ML IV SCH ×3 (00:34→12:08)
--- NOTE | 2018-11-18 03:35 | Consultation ---
DATE OF CONSULTATION: 11/17/2018 REASON FOR CONSULTATION: Evaluation and management of patient with metastatic prostate cancer. HISTORY OF PRESENTING ILLNESS: Mr. Brar is a very pleasant 88-year-old gentleman, who is very well known to me as he is my clinic patient, has been getting treated for metastatic prostate cancer. He has had progression on combined androgen blockade, subsequently switched to Zytiga, which he has been tolerating well with good control in his disease process. He was presented to the Emergency Department due to the complaint of left arm swelling, which started after a trauma to the left hand. According to the daughter, swelling got progressed. Subsequently, seen here well by primary care doctor and referred to the Emergency Department. In the ER, the patient was alert and oriented. He was started on IV fluid as well as IV antibiotic, admitted to inpatient floor. Hematology-Oncology has been consulted to assist with the management. Presently, the patient is lying comfortably, however, feeling fatigue and tired. According to the family, swelling and redness have been getting worse. He has been also spiking fever. PAST MEDICAL HISTORY: 1. Metastatic prostate cancer. 2. Peripheral vascular disease. 3. Acute on chronic anemia. PAST SURGICAL HISTORY: 1. History of bone marrow biopsy. 2. Prostate cancer, diagnosed by biopsy in 2003. 3. Orchiectomy. 4. Cataract surgery. 5. Knee surgery. 6. Kidney stone with one functioning kidney. 7. Renal surgery in 2004. FAMILY HISTORY: Father of old age. Mother unknown. Siblings are alive and live long. Brother had myocardial infarction. SOCIAL HISTORY: The patient smoked for few years. Presently, denies any smoking, alcohol use, or illicit drug use. ALLERGIES: NO KNOWN DRUG ALLERGIES. CURRENT MEDICATIONS: Reviewed as per electronic medical record. REVIEW OF SYSTEMS: A 14-point review of systems negative except as mentioned per history of presenting illness as well as possible fatigue, tiredness, and not feeling well. LABORATORY DATA: White blood cell count 6.9, hemoglobin 10.4, hematocrit 36.9, and platelet 225. BUN 15 and creatinine 1.2. ASSESSMENT AND PLAN: Mr. Brar is a very pleasant 88-year-old gentleman, who is very well known to me as he is my clinic patient and has been receiving systemic therapy with Zytiga along with prednisone for metastatic prostate cancer. He presented to the Emergency Department due to left arm swelling and pain, which started after trauma to the left hand. On arrival in the Emergency Department, he was noted to be spiking fever and admitted to inpatient floor with a diagnosis of left hand and arm cellulitis. He has been started on IV antibiotic. Hematology-Oncology has been consulted to assist with the management. I have reviewed the record and discussed at length with the patient as well as family member about his current disease and importance of continuation of IV antibiotic. I have also discussed the case with the primary team and recommended to broaden the coverage of IV antibiotic as the patient continued to have spiking fever. Apparently, the patient is also having urinary tract infection and probably needs coverage for the gram-negative as well. From prostate cancer standpoint, we will hold off on Zytiga, however, continue with prednisone as the patient is chronically on prednisone therapy. Laboratory workup also revealed acute on chronic anemia. At this point, we will closely monitor. However, if continue to drop, then we will require further workup. Thank you for the consult. I will continue to be available. Please call with questions. MD CELENA Ng/MODL /[id number]
[2018-11-18 03:51] LABS: BASOPHILS % 0.4 % (0.0-1.0); EOSINOPHILS % 0.4 % (0.0-6.0); HEMATOCRIT 33.2 % (38.2-49.6); HEMOGLOBIN 10.2 g/dL (14.0-18.0); LYMPHOCYTES # (AUTO) 0.5 (1.0-3.2); LYMPHOCYTES % 10.2 % (18.0-39.1); MEAN CORPUSCULAR HEMOGLOBIN 25.2 pg (28-32); MEAN CORPUSCULAR HGB CONC 30.7 g/dL (31-35); MONOCYTES # (AUTO) 0.2 (0.2-0.8); MONOCYTES % 4.1 % (4.4-11.3); NEUTROPHILS # (AUTO) 4.1 (2.1-6.9); NEUTROPHILS % 84.5 % (38.7-80.0); PLATELET COUNT 266 x10e3/uL (140-360); RED BLOOD COUNT 4.05 x10e6/uL (4.3-5.7); RED CELL DISTRIBUTION WIDTH 16.9 % (11.7-14.4)
[2018-11-18 04:12] LABS: ANION GAP 12.8 mmol/L (8-16); CALCIUM 8.7 mg/dL (8.4-10.2); CREATININE, SERUM 1.46 mg/dL (0.72-1.25); POTASSIUM 3.8 mmol/L (3.5-5.1)
[2018-11-18] MEDS ORDERED: PREDNISONE 20 MG TAB PO SCH (09:00)
[2018-11-18] MEDS ORDERED: VANCOMYCIN 750MG/NS 150ML IVPB 150 ML IV SCH (09:00)
[2018-11-18] MEDS: METOPROLOL TARTRATE 25 MG TAB PO SCH ×2 (09:00→17:00)
[2018-11-18] MEDS: FAMOTIDINE 20 MG TAB PO SCH ×2 (10:05→16:30)
[2018-11-18] MEDS: ASCORBIC ACID 500 MG TAB PO SCH ×2 (10:07→17:32)
[2018-11-18] MEDS: OYST-CAL-D 500MG TABLET PO SCH ×2 (10:07→17:32)
[2018-11-18] MEDS: PREDNISONE 10 MG TAB PO SCH (10:07)
[2018-11-18] MEDS: MUPIROCIN 2% OINT 22 GM TUBE TOP SCH (10:08)
[2018-11-18] MEDS: SODIUM CHLORIDE 0.9% 1000ML 1,000 ML IV SCH (12:08)
--- NOTE | 2018-11-18 18:16 | NUR ---
Nutrition Follow-up Note RD Recommendation for Physician: -Continue with diet as ordered -Continue Ensure BID to increase protein-calorie intake -Calorie count was started (11/18 11/20) -Discussed menu options with family and pt Plan of Care: RD following, monitoring for tolerance and adequacy, calorie count Nutrition reason for involvement: MD consult 3 days calorie count Primary Diagnose(s): Cellulitis, UTI PMH: CHF, Hypertension, Peripheral vascular disease, prostate cancer without metastases Ht: 69in Wt: 220lbs BMI: 32.48kg/m2 IBW: 160lb +/- 10% RD Assessment: 11/18 - Visited pt in the room. Grandson on bedside to translate as pt only speaks Ghanaian. Pt reported improvement in his appetite. PCT has recorded 50-75% meal intake. No GI complains during my visit. Pt denied any chewing or swallowing difficulty. Pt has been drinking some of the Ensure ordered. Discussed menu options with pt and family. Will continue to monitor and follow. (11/15) Chart reviewed. Labs and meds reviewed. Patient is a 88 y/o M who was admitted for dx of cellulitis (on left hand, left arm and left upper arm) and UTI. Patient having a procedure done during time of visit, daughter was able to provide food and nutrition related history for patient. Patient agreeable and presented no acute complaints. Daughter reports great intake and appetite at home. Denied any GI symptoms or any difficulties with chewing or swallowing. Reports patients weight has been mostly stable. Will continue to follow and monitor as needed. Current Diet: Cardiac Diet Malnutrition Evaluation (11/15) The patient does not meet criteria for a specified degree of malnutrition at this time. Will re-evaluate at follow-up as appropriate. Diet Education Needs Assessment: Diet education not indicated. Nutrition Care Level: low Signed: Brandi Hatch, MS, RD, LD
[2018-11-18] MEDS: CEFTRIAXONE SOD 1 GM/NS 50 ML 50 ML IV SCH (18:20)
--- NOTE | 2018-11-18 19:38 | NUR ---
PT IS RESTING IN BED. RESPIRATION IS EVEN AND UNLABORED, NO DISTRESS NOTED. BED IN THE LOWEST POSITION, LOCKED, BED ALARM ON, AND CALL LIGHT WITHIN REACH. WILL CONTINUE TO MONITOR.
--- NOTE | 2018-11-18 19:41 | Consultation ---
DATE OF CONSULTATION: 11/18/2018 REASON FOR CONSULTATION: UTI. HISTORY OF PRESENT ILLNESS: This patient, who is an 88-year-old male, who has history of hydronephrosis and history of prostate cancer. The patient apparently a week ago scratch his left upper extremity, still have redness and swelling of his arm. He came to the emergency room because it was not getting any better. The patient, who is a very pleasant 88-year-old male, who has been followed by Urology. Has chronic Watson, chronic problems with the right kidney, right UPJ junction, status post prostate cancer, radical prostatectomy, comes in complaining of redness and swelling of his left upper extremity. The patient is currently lying in bed, comfortable. The family tells me that he is incontinent. The patient has been getting treatment for prostate cancer. He is on androgen pinky, subsequently switched to Zytiga and the patient comes in the emergency room with left upper extremities redness and swelling. PAST MEDICAL HISTORY: Prostate cancer with mets, peripheral vascular disease, obesity, and chronic anemia. PAST SURGICAL HISTORY: Bone marrow biopsy, prostate cancer with biopsy in 2003, orchiectomy, cataract surgery, knee surgery, kidney stones, chronic kidney disease, renal surgery in 2004. ALLERGIES: NKA. SOCIAL HISTORY: There is no smoking, drug abuse, or alcohol abuse. FAMILY HISTORY: Hypertension. REVIEW OF SYSTEMS: HEENT: Negative. PULMONARY: Negative. CARDIAC: Negative. : Negative. SKIN: There is no other rashes except on arm. LABORATORY DATA: Blood cultures negative. Urine culture showed E. coli, which was pretty much pansensitive. The patient had white count of 9.05, hemoglobin 11.3, and his platelets 329. Sodium 140, potassium 3.9, and creatinine 1.10, it went up to 1.46. Lactic acid 29 on admission. The patient is currently on Zosyn, Pepcid, Fosamax, and vancomycin. PHYSICAL EXAMINATION: GENERAL: He is currently alert and oriented. Does not seem to be in acute distress. VITAL SIGNS: Stable. Currently afebrile. HEENT: He is not icteric. NECK: Supple. CHEST: Clear bilateral. COR: S1 and S2. No S3, S4, or murmur. ABDOMEN: Soft. Bowel sounds present. There is no tenderness. EXTREMITIES: Arm, there is erythema and there is edema noted. IMPRESSION: 1. Cellulitis of the arm. 2. Urinary tract infection. 3. Bacteriuria. 4. History of prostate cancer. 5. Acute kidney injury, getting worse. I would recommend to discontinue Zosyn since I am concerned about worsening kidney function. We will put him on Rocephin 1 g daily. 6. Cellulitis of the left upper extremity, probably gram-positive. He is currently on vancomycin 1 g q.24. continue vancomycin 1 g q.12 and Rocephin 1 g q.12. Follow vancomycin trough. Keep the arm elevated. History of prostate cancer, history of chronic kidney disease. Discussed with the family. We will follow. MD STAN Hong/MODL /[id number]
[2018-11-18] MEDS ORDERED: VANCOMYCIN HCL 1.5 GM in SODIUM CHLORIDE 0.9% 250ML 300 ML IV SCH (21:00)
[2018-11-18] MEDS: TAMSULOSIN HCL 0.4 MG CAP PO SCH (21:41)
[2018-11-18] MEDS: VANCOMYCIN 750MG/NS 150ML IVPB 150 ML IV SCH (22:09)
[2018-11-19] VITALS (8 sets, daily range): BP systolic 105–130; BP diastolic 49–60
[2018-11-19 04:00] LABS: BASOPHILS % 0.5 % (0.0-1.0); EOSINOPHILS # (AUTO) 0.1 (0.0-0.4); EOSINOPHILS % 1.4 % (0.0-6.0); HEMATOCRIT 31.2 % (38.2-49.6); HEMOGLOBIN 9.2 g/dL (14.0-18.0); LYMPHOCYTES # (AUTO) 0.6 (1.0-3.2); LYMPHOCYTES % 14.5 % (18.0-39.1); MEAN CORPUSCULAR HEMOGLOBIN 24.3 pg (28-32); MEAN CORPUSCULAR HGB CONC 29.5 g/dL (31-35); MEAN CORPUSCULAR VOLUME 82.5 fL (81-99); MONOCYTES # (AUTO) 0.4 (0.2-0.8); MONOCYTES % 8.1 % (4.4-11.3); NEUTROPHILS # (AUTO) 3.3 (2.1-6.9); PLATELET COUNT 275 x10e3/uL (140-360); RED BLOOD COUNT 3.78 x10e6/uL (4.3-5.7); RED CELL DISTRIBUTION WIDTH 16.6 % (11.7-14.4)
[2018-11-19 04:19] LABS: ANION GAP 10.7 mmol/L (8-16); CALCIUM 8.7 mg/dL (8.4-10.2); CREATININE, SERUM 1.33 mg/dL (0.72-1.25); POTASSIUM 3.7 mmol/L (3.5-5.1)
[2018-11-19] MEDS: SODIUM CHLORIDE 0.9% 1000ML 1,000 ML IV SCH ×2 (06:15→23:46)
[2018-11-19] MEDS: FAMOTIDINE 20 MG TAB PO SCH ×2 (08:15→17:31)
[2018-11-19] MEDS: METOPROLOL TARTRATE 25 MG TAB PO SCH ×2 (08:15→17:32)
[2018-11-19] MEDS: PREDNISONE 10 MG TAB PO SCH (08:16)
[2018-11-19] MEDS: OYST-CAL-D 500MG TABLET PO SCH ×2 (08:16→17:32)
[2018-11-19] MEDS: ASCORBIC ACID 500 MG TAB PO SCH ×2 (08:16→17:32)
[2018-11-19] MEDS: MUPIROCIN 2% OINT 22 GM TUBE TOP SCH (08:17)
--- NOTE | 2018-11-19 11:28 | NUR ---
EDUCATED ABOUT IMM SIGNED FILED IN CHART AND LEFT COPY WITH PT BEDSIDE WITH CARD FOR ANY FURTHER QUESTIONS
[2018-11-19] MEDS: CEFTRIAXONE SOD 1 GM/NS 50 ML 50 ML IV SCH (17:32)
--- NOTE | 2018-11-19 19:15 | NUR ---
Completed BS rounds with morning nurse. Pt alert and orient to name. Lying in bed HOB 45 degrees. Denies pain at this time. Family at bedside. Call briones within reach. Bed low and locked. Will continue to monitor.
[2018-11-19] MEDS: VANCOMYCIN 750MG/NS 150ML IVPB 150 ML IV SCH (21:00)
[2018-11-19] MEDS: TAMSULOSIN HCL 0.4 MG CAP PO SCH (21:00)
[2018-11-20] VITALS (8 sets, daily range): BP systolic 136–195; BP diastolic 59–93
[2018-11-20 03:40] LABS: BASOPHILS % 0.2 % (0.0-1.0); EOSINOPHILS % 0.2 % (0.0-6.0); HEMATOCRIT 32.6 % (38.2-49.6); HEMOGLOBIN 9.5 g/dL (14.0-18.0); LYMPHOCYTES # (AUTO) 0.8 (1.0-3.2); LYMPHOCYTES % 12.9 % (18.0-39.1); MEAN CORPUSCULAR HEMOGLOBIN 24.7 pg (28-32); MEAN CORPUSCULAR HGB CONC 29.1 g/dL (31-35); MEAN CORPUSCULAR VOLUME 84.7 fL (81-99); MONOCYTES # (AUTO) 0.2 (0.2-0.8); MONOCYTES % 3.9 % (4.4-11.3); NEUTROPHILS # (AUTO) 4.9 (2.1-6.9); NEUTROPHILS % 82.5 % (38.7-80.0); PLATELET COUNT 307 x10e3/uL (140-360); RED BLOOD COUNT 3.85 x10e6/uL (4.3-5.7); RED CELL DISTRIBUTION WIDTH 16.6 % (11.7-14.4)
[2018-11-20 03:59] LABS: ANION GAP 11.9 mmol/L (8-16); CALCIUM 8.6 mg/dL (8.4-10.2); CREATININE, SERUM 1.22 mg/dL (0.72-1.25); POTASSIUM 3.9 mmol/L (3.5-5.1)
[2018-11-20] MEDS ORDERED: FUROSEMIDE INJ 10 MG/ML 2 ML VIAL IV ONE (06:00)
[2018-11-20] MEDS ORDERED: Calcium Carbonate PO (06:30)
[2018-11-20] MEDS ORDERED: ASCORBIC ACID500 MG PO (06:30)
--- NOTE | 2018-11-20 06:50 | NUR ---
Report given to morning nurse. Pt alert, lying in bed. Denies pain at this time. No acute distress noted.
[2018-11-20] MEDS: METOPROLOL TARTRATE 25 MG TAB PO SCH ×2 (08:41→17:31)
[2018-11-20] MEDS: FAMOTIDINE 20 MG TAB PO SCH ×2 (08:41→17:30)
[2018-11-20] MEDS: OYST-CAL-D 500MG TABLET PO SCH ×2 (08:41→17:31)
[2018-11-20] MEDS: PREDNISONE 10 MG TAB PO SCH (08:45)
[2018-11-20] MEDS: ASCORBIC ACID 500 MG TAB PO SCH ×2 (08:46→17:31)
[2018-11-20] MEDS: MUPIROCIN 2% OINT 22 GM TUBE TOP SCH (08:46)
--- NOTE | 2018-11-20 16:02 | NUR ---
Collected 3 days calorie count: 11/19 Breakfast: 400kcal 11/20 Breakfast: 400kcal 11/20 Lunch: 500kcal Noted average of 75-100% meal intake. Appetite has improved significantly since last visit. No other concern at this time. Signed by Brandi Hatch, MS, RD, LD
[2018-11-20] MEDS: CEFTRIAXONE SOD 1 GM/NS 50 ML 50 ML IV SCH (17:31)
--- NOTE | 2018-11-20 19:22 | NUR ---
Completed nursing report with morning nurse. Pt alert and orient to name. Lying in bed Hob 45 degrees. Denies pain at this time. Family at bedside. Call briones within reach. Will continue to monitor.
[2018-11-20] MEDS: VANCOMYCIN 750MG/NS 150ML IVPB 150 ML IV SCH (21:30)
[2018-11-20] MEDS: TAMSULOSIN HCL 0.4 MG CAP PO SCH (21:30)
--- NOTE | 2018-11-20 21:30 | NUR ---
Spoke with LORNA Mustafa regarding Pt's Vanco trough level 14.7. Moon stated to continue Vancomycin IV.
[2018-11-21] VITALS (8 sets, daily range): BP systolic 116–178; BP diastolic 56–77
[2018-11-21 03:24] LABS: BASOPHILS % 0.2 % (0.0-1.0); EOSINOPHILS % 0.2 % (0.0-6.0); HEMATOCRIT 31.3 % (38.2-49.6); HEMOGLOBIN 9.4 g/dL (14.0-18.0); LYMPHOCYTES % 10.7 % (18.0-39.1); MEAN CORPUSCULAR HEMOGLOBIN 24.7 pg (28-32); MEAN CORPUSCULAR VOLUME 82.4 fL (81-99); MONOCYTES # (AUTO) 0.6 (0.2-0.8); NEUTROPHILS # (AUTO) 7.3 (2.1-6.9); NEUTROPHILS % 80.8 % (38.7-80.0); PLATELET COUNT 315 x10e3/uL (140-360); RED CELL DISTRIBUTION WIDTH 16.5 % (11.7-14.4)
[2018-11-21 03:41] LABS: BUN/CREATININE RATIO 29 (6-25); CALCIUM 9.2 mg/dL (8.4-10.2); CARBON DIOXIDE 30 mmol/L (22-29); CHLORIDE 101 mmol/L (98-107); CREATININE, SERUM 1.12 mg/dL (0.72-1.25); EST GLOMERULAR FILTRATION RATE > 60 ML/MIN (60-); GLUCOSE 234 mg/dL (74-118); SODIUM 140 mmol/L (136-145)
[2018-11-21 03:58] LABS: BLOOD UREA NITROGEN 32 mg/dL (7-26)
[2018-11-21] MEDS ORDERED: ALBUTEROL/IPRATROPIUM 3 ML NEB NEB PRN (05:30)
--- NOTE | 2018-11-21 05:52 | NUR ---
LAB RESULTS SEEN BY LEAK OPERATOR PARAFFIN PLANT. NEW LABS FOR TOMORROW. N/O NEB TREATMENTS Q6 HRS, NORVASC 10MG DAILY, CXR.
[2018-11-21] MEDS: ALBUTEROL/IPRATROPIUM 3 ML NEB NEB SCH ×3 (06:15→19:30)
--- NOTE | 2018-11-21 07:20 | NUR ---
Bs report completed with morning nurse. Pt lying in recliner. RR even and unlabored. Call briones within reach.
--- NOTE | 2018-11-21 07:28 | Diagnostic Imaging Report ---
EXAMINATION: CHEST SINGLE (PORTABLE) INDICATION: Short of breath COMPARISON: Chest radiograph 12/27/2017 FINDINGS: AP view TUBES and LINES: None. LUNGS: No consolidations. Increased pulmonary interstitial lung markings.. Central pulmonary vascular prominence. PLEURA: No pleural effusion or pneumothorax. HEART AND MEDIASTINUM: Cardiac size is mildly enlarged. BONES AND SOFT TISSUES: No acute osseous lesion. Soft tissues are unremarkable. Degenerative changes in the shoulders. UPPER ABDOMEN: No free air under the diaphragm. IMPRESSION: Mild cardiomegaly and pulmonary interstitial edema. Signed by: Charles Donovan DO on 11/21/2018 7:25 AM
--- NOTE | 2018-11-21 07:30 | NUR ---
PATIENT IS SITTING UP IN THE RECLINER- IN STABLE CONDITION WITH NO S/S OF RESPIRATORY DISTRESS. NO PAIN VOICED. LEFT ARM IS RED AND WARM TO TOUCH- NO DRAINAGE NOTED. LEFT HAND WOUND NOTED AND OPEN TO AIR. CALL LIGHT IS WITHIN REACH, PATIENT INSTRUCTED TO CALL FOR ASSISTANCE NEEDED.
[2018-11-21] MEDS: PREDNISONE 10 MG TAB PO SCH (08:29)
[2018-11-21] MEDS: OYST-CAL-D 500MG TABLET PO SCH ×2 (08:29→17:43)
[2018-11-21] MEDS: AMLODIPINE BESYLATE 10 MG TAB PO SCH (08:29)
[2018-11-21] MEDS: METOPROLOL TARTRATE 25 MG TAB PO SCH ×2 (08:29→17:43)
[2018-11-21] MEDS: FAMOTIDINE 20 MG TAB PO SCH ×2 (08:29→17:43)
[2018-11-21] MEDS: ASCORBIC ACID 500 MG TAB PO SCH ×2 (08:30→17:43)
[2018-11-21] MEDS: MUPIROCIN 2% OINT 22 GM TUBE TOP SCH (10:36)
--- NOTE | 2018-11-21 10:36 | NUR ---
LEFT HAND WOUND DRESSING CHANGE COMPLETED. IV DRESSING CHANGED; PATIENT HAS SMALL SKIN TEAR TO RIGHT WRIST AREA- DRESSING APPLIED.
--- NOTE | 2018-11-21 12:00 | NUR ---
PATIENT'S O2 SAT DECREASED TO 84 PRIOR TP PHYSICAL THERAPY WORKING WITH THE PATIENT- PATIENT PLACED ON 2L NC PER PROTOCOL BY RN.
--- NOTE | 2018-11-21 12:56 | NUR ---
EDUCATED ABOUT IMM, SIGNED, FILED IN CHART, WITH COPY LEFT WITH FAMILY AT BEDSIDE.
[2018-11-21] MEDS: CEFTRIAXONE SOD 1 GM/NS 50 ML 50 ML IV SCH (17:43)
[2018-11-21] MEDS: TAMSULOSIN HCL 0.4 MG CAP PO SCH (20:35)
[2018-11-21] MEDS: VANCOMYCIN 750MG/NS 150ML IVPB 150 ML IV SCH (20:35)
[2018-11-22] VITALS (8 sets, daily range): BP systolic 109–158; BP diastolic 54–81
[2018-11-22] MEDS: ALBUTEROL/IPRATROPIUM 3 ML NEB NEB SCH ×4 (00:30→19:00)
[2018-11-22 03:03] LABS: BASOPHILS % 0.2 % (0.0-1.0); EOSINOPHILS % 0.1 % (0.0-6.0); LYMPHOCYTES # (AUTO) 0.9 (1.0-3.2); LYMPHOCYTES % 9.2 % (18.0-39.1); MEAN CORPUSCULAR HEMOGLOBIN 24.9 pg (28-32); MEAN CORPUSCULAR VOLUME 83.1 fL (81-99); MONOCYTES # (AUTO) 0.7 (0.2-0.8); MONOCYTES % 6.7 % (4.4-11.3); NEUTROPHILS # (AUTO) 8.1 (2.1-6.9); NEUTROPHILS % 81.1 % (38.7-80.0); PLATELET COUNT 350 x10e3/uL (140-360); RED BLOOD COUNT 3.61 x10e6/uL (4.3-5.7); RED CELL DISTRIBUTION WIDTH 16.7 % (11.7-14.4)
[2018-11-22 03:14] LABS: ANION GAP 13.1 mmol/L (8-16); CALCIUM 8.8 mg/dL (8.4-10.2); CREATININE, SERUM 1.3 mg/dL (0.72-1.25); POTASSIUM 4.1 mmol/L (3.5-5.1)
--- NOTE | 2018-11-22 07:05 | NUR ---
PATIENT IS ALERT AND IS IN STABLE CONDITION WITH NO S/S OF RESPIRATORY DISTRESS. NO PAIN VOICED. O2 APPLIED. DRESSING TO LEFT HAND AND RIGHT WRIST AREA ARE DRY AND INTACT. SCD'S APPLIED TO BILATERAL LOWER EXTREMITIES. ALLEVYN PAD APPLIED TO SACRUM AREA AND DIAPER APPLIED. BED ALARM ON. CALL LIGHT IS WITHIN REACH, PATIENT INSTRUCTED TO CALL FOR ASSISTANCE NEEDED.
[2018-11-22] MEDS: ASCORBIC ACID 500 MG TAB PO SCH ×2 (08:07→17:20)
[2018-11-22] MEDS: PREDNISONE 10 MG TAB PO SCH (08:07)
[2018-11-22] MEDS: OYST-CAL-D 500MG TABLET PO SCH ×2 (08:08→17:20)
[2018-11-22] MEDS: METOPROLOL TARTRATE 25 MG TAB PO SCH ×2 (08:08→17:20)
[2018-11-22] MEDS: FAMOTIDINE 20 MG TAB PO SCH ×2 (08:08→17:20)
[2018-11-22] MEDS: AMLODIPINE BESYLATE 10 MG TAB PO SCH (08:08)
[2018-11-22] MEDS: MUPIROCIN 2% OINT 22 GM TUBE TOP SCH (08:24)
--- NOTE | 2018-11-22 13:59 | NUR ---
Received order for LTAC eval. Spoke with pt and son at bedside and explained purpose of LTAC. They are both in agreement for [facility]. Pt asked his son to sign choice letter. Signed copy placed in chart. copy to son. Referral was faxed to [facility] intake at [phone]. Mitra Gill, weekend liaison for [facility], was notified of referral. Informed her that pt is able to transfer once accepted. Mitra's contact [phone]
--- NOTE | 2018-11-22 14:38 | NUR ---
MOT initiated and placed with pt's packet at nurse's station.
[2018-11-22] MEDS: CEFTRIAXONE SOD 1 GM/NS 50 ML 50 ML IV SCH (17:20)
--- NOTE | 2018-11-22 18:27 | NUR ---
RECEIVED A CALL FROM [facility] FROM [facility] REGARDING INFORMATION REGARDING PATIENT AND ANTIBIOTIC END DATES. INQUIRED WITH INFECTIOUS DISEASE P.AHEATHER Nguyen, REGARDING END DATES FOR IV ANTIBIOTICS: VANCOMYCIN AND ROCEPHIN; AWAITING CALLBACK.
--- NOTE | 2018-11-22 19:24 | NUR ---
PATIENT IS IN STABLE CONDITION WITH NO S/S OF RESPIRATORY DISTRESS. NO PAIN VOICED. ABD PAD APPLIED UNDER PATIENT'S LEFT ARM DUE TO DRAINAGE. BED ALARM ON. FAMILY MEMBERS PRESENT IN ROOM. CALL LIGHT IS WITHIN REACH, PATIENT INSTRUCTED TO CALL FOR ASSISTANCE NEEDED. BEDSIDE REPORT GIVEN TO ONCOMING NURSE.
[2018-11-22] MEDS: VANCOMYCIN 750MG/NS 150ML IVPB 150 ML IV SCH (21:31)
[2018-11-22] MEDS: TAMSULOSIN HCL 0.4 MG CAP PO SCH (21:31)
[2018-11-23 00:37] VITALS: BP 116/56
[2018-11-23] MEDS: ALBUTEROL/IPRATROPIUM 3 ML NEB NEB SCH ×3 (01:00→14:15)
--- NOTE | 2018-11-23 03:52 | NUR ---
ATTEMPTED THREE TIMES TO DRAW THE PT MORNING LAB AND WAS UNSUCCESSFUL. WILL CONTINUE TO MONITOR.
[2018-11-23 06:17] VITALS: BP 115/54
[2018-11-23] MEDS ORDERED: FUROSEMIDE INJ 10 MG/ML 4 ML VIAL IV ONE (07:00)
--- NOTE | 2018-11-23 07:05 | NUR ---
PATIENT IN STABLE CONDITION WITH NO S/S OF RESPIRATORY DISTRESS. NO PAIN VOICED. TELEMETRY AND O2 APPLIED. DIAPER APPLIED. CALL LIGHT IS WITHIN REACH, PATIENT INSTRUCTED TO CALL FOR ASSISTANCE NEEDED.
[2018-11-23 07:28] LABS: BASOPHILS % 0.3 % (0.0-1.0); EOSINOPHILS # (AUTO) 0.1 (0.0-0.4); EOSINOPHILS % 1.3 % (0.0-6.0); HEMATOCRIT 31.5 % (38.2-49.6); HEMOGLOBIN 8.8 g/dL (14.0-18.0); LYMPHOCYTES # (AUTO) 1.3 (1.0-3.2); LYMPHOCYTES % 12.2 % (18.0-39.1); MEAN CORPUSCULAR HEMOGLOBIN 24.1 pg (28-32); MEAN CORPUSCULAR HGB CONC 27.9 g/dL (31-35); MEAN CORPUSCULAR VOLUME 86.3 fL (81-99); MONOCYTES # (AUTO) 0.8 (0.2-0.8); MONOCYTES % 7.4 % (4.4-11.3); NEUTROPHILS # (AUTO) 8.2 (2.1-6.9); NEUTROPHILS % 75.9 % (38.7-80.0); PLATELET COUNT 369 x10e3/uL (140-360); RED BLOOD COUNT 3.65 x10e6/uL (4.3-5.7); RED CELL DISTRIBUTION WIDTH 16.9 % (11.7-14.4)
[2018-11-23 07:39] LABS: BLOOD UREA NITROGEN 42 mg/dL (7-26); BUN/CREATININE RATIO 39 (6-25); CALCIUM 9.5 mg/dL (8.4-10.2); CARBON DIOXIDE 33 mmol/L (22-29); CHLORIDE 101 mmol/L (98-107); CREATININE, SERUM 1.08 mg/dL (0.72-1.25); EST GLOMERULAR FILTRATION RATE > 60 ML/MIN (60-); GLUCOSE 156 mg/dL (74-118); SODIUM 144 mmol/L (136-145)
[2018-11-23 07:58] VITALS: BP 136/65
[2018-11-23] MEDS: FAMOTIDINE 20 MG TAB PO SCH ×2 (08:22→16:09)
[2018-11-23] MEDS: METOPROLOL TARTRATE 25 MG TAB PO SCH ×2 (08:22→16:09)
[2018-11-23] MEDS: PREDNISONE 10 MG TAB PO SCH (08:22)
[2018-11-23] MEDS: ASCORBIC ACID 500 MG TAB PO SCH ×2 (08:22→16:09)
[2018-11-23] MEDS: OYST-CAL-D 500MG TABLET PO SCH ×2 (08:22→16:09)
[2018-11-23] MEDS: AMLODIPINE BESYLATE 10 MG TAB PO SCH (08:23)
[2018-11-23 09:13] LABS: BAND NEUTROPHILS % (MANUAL) 2 %; EOSINOPHILS % (MANUAL) 1 % (0-7); LYMPHOCYTES % (MANUAL) 10 % (19-48); MONOCYTES % (MANUAL) 2 % (3.4-9.0); NEUTROPHILS % (MANUAL) 85 % (40-74)
[2018-11-23 09:17] LABS: POLYCHROMASIA FEW
[2018-11-23 09:18] LABS: HYPOCHROMASIA SLIGHT
[2018-11-23 09:20] LABS: PLATELET ESTIMATE SLIGHTLY INCREASED
[2018-11-23 09:21] LABS: PLATELET MORPHOLOGY COMMENT FEW LARGE
[2018-11-23] MEDS: MUPIROCIN 2% OINT 22 GM TUBE TOP SCH (09:30)
--- NOTE | 2018-11-23 11:24 | NUR ---
Have been communicating with Mitra Gill, liaison with [facility] [phone] regarding transfer of pt. Have also been communicating with pt nurse, Ayanna STOVER. Awaiting for bed assignment. Have called Mitra again, and am awaiting her return call.
--- NOTE | 2018-11-23 11:34 | NUR ---
Spoke to Mitra Gill, liaison with [facility]. She stated she is still trying to reach her supervisor waterproofing. notified Ayanna STOVER, pt nurse. Ayanna STOVER stated pt needs his PICC live before transferring. This should happen today.
[2018-11-23 11:52] VITALS: BP 116/53
--- NOTE | 2018-11-23 13:31 | NUR ---
Pt was accepted around noon to [facility]. Updated MOT and notified Ayanna with info and room number. Pt to transfer today after PICC placement.
--- NOTE | 2018-11-23 15:11 | Diagnostic Imaging Report ---
Examination: Single AP view of the chest. COMPARISON: AP chest 09/21/2018 INDICATION: Line placement IMPRESSION: 1. Lines and Tubes: Interval placement of right-sided PICC line, with distal tip projecting at the level of the mid SVC. 2. Lungs are well-inflated. No consolidation or effusion. 3. Cardiomediastinal silhouette is normal. Mild central pulmonary venous congestion 4. No acute bony abnormalities. Signed by: Dr. Lai Mancera M.D. on 11/23/2018 3:08 PM
--- NOTE | 2018-11-23 15:20 | NUR ---
Visit made by the Spiritual Care Department Pastoral Visitor, Jesus Thomas. PV provided pastoral presence, hospitality, and supportive listening. Pastoral Visitor informed pt/family of the scope of Office Worker Services and availability. ROBERT GLASS Seed Corn Manager Production Spiritual Care Department O: [phone] Pager: [phone] ([phone] number calling from)
[2018-11-23 16:00] VITALS: BP 134/65
[2018-11-23] MEDS: CEFTRIAXONE SOD 1 GM/NS 50 ML 50 ML IV SCH (17:18)
--- NOTE | 2018-11-23 17:27 | NUR ---
TRANSFER REPORT CALLED TO [facility]- SPOKE TO JUAN RN AT 1727. PATIENT GOING TO ROOM 328.
--- NOTE | 2018-11-23 19:25 | NUR ---
PATIENT DISCHARGE TO [facility] 328- PATIENT OFF THE UNIT AT 1855 PER STRETCHER WITH 2 PERSON EMS SERVICE. PATIENT IN STABLE CONDITION WITH NO S/S OF RESPIRATORY DISTRESS. NO PAIN VOICED. DRESSING TO LEFT HAND IS DRY AND INTACT. RIGHT UPPER ARM PICC LINE INTACT AND SALINE LOCKED. IV TO RIGHT HAND WAS REMOVED WITH TIP INTACT. O2 APPLIED AT 2L NC. ALL PERSONAL ITEMS OF PATIENT WAS TAKEN BY HIS DAUGHTER. TRANSFER PACKET GIVEN TO EMS SERVICE.
--- NOTE | 2018-11-23 23:32 | Discharge Summary ---
ADMISSION DIAGNOSES: Left upper extremity cellulitis with septic shock, prostate cancer, hypertension, benign prostatic hypertrophy, obesity, urinary tract infection present on admission. DISCHARGE DIAGNOSES: Left upper extremity cellulitis with septic shock, prostate cancer, hypertension, benign prostatic hypertrophy, obesity, urinary tract infection present on admission, acute kidney injury. HISTORY: PVD, prostate cancer, anemia, hypertension, BPH. SURGICAL HISTORY: Bilateral total knee replacement, bilateral cataract surgery, bilateral orchiectomy, kidney surgery, lower back surgery. FAMILY HISTORY: Noncontributory. SOCIAL HISTORY: Noncontributory. HOSPITAL COURSE: An 88-year-old male, complains of left upper extremity redness and swelling that began 1 week after getting a laceration on his left hand. It worsened quickly in the last 2 to 3 days. He denies fever, drainage, and antibiotic use. On admission, the patient was started on cefazolin. He had a lactate of 27.1. Venous Doppler was ordered, which was negative for DVT. Due to acute kidney injury, the patient had a renal scan done, which showed moderately severe medical renal disease present in the left kidney and account for the decreased size of the kidney. The volume of renal parenchyma on the right kidney is considerably greater than the left, but extraction of tracer by the renal parenchyma is very poor, consistent with severe medical disease. This accounts for the decreased differential function of 36%, even though the kidney is larger than the left. The patient had a KUB, which was negative. Chest x-ray, which showed interstitial edema and cardiomegaly. The patient's urine culture came back positive for E coli. He was already changed to Vanco and Rocephin per Infectious Disease recommendations. The cellulitis was very slow to improve, likely due to the history of prostate cancer and the patient was taking Zytiga on admission. The Zytiga was held per Hematology and the patient was started on prednisone instead. The patient will need long-term antibiotics as the wound is very slow to heal and the cellulitis is slow to resolve. The patient will transfer to [facility] for long-term antibiotic use and close physician monitoring. The patient and family understand discharge instructions and agrees to plan. Vital signs stable, the patient afebrile. Dictated by Moon Oh, LORNA Alexis W Killam, MD LIZZY/SKYLARL /[id number]
--- NOTE | 2018-11-24 01:47 | Progress Note ---
DATE: 11/23/2018 Followup Note CHIEF COMPLAINT: The patient with metastatic prostate cancer, admitted due to left upper extremity cellulitis and sepsis. HISTORY OF PRESENTING ILLNESS: Mr. Brar is a very pleasant 88-year-old gentleman who is my clinic patient, has metastatic prostate cancer, now presented with left upper extremity cellulitis and sepsis. He has been started on IV antibiotics under the direction of Infectious Disease physician. PHYSICAL EXAMINATION: VITAL SIGNS: Reviewed as per electronic medical record. HEENT: PERRLA. Extraocular movements are intact. Head is atraumatic and normocephalic. NECK: Supple. CVS: S1 and S2 audible. RESPIRATORY: Decreased bilateral air entry. ABDOMEN: Soft. Positive bowel sounds. EXTREMITIES: Positive edema. NEURO: The patient is alert. LABORATORY DATA: Reviewed as per electronic medical record. ASSESSMENT AND PLAN: Mr. Brar is a very pleasant 88-year-old gentleman who is going to be discharged for long-term antibiotic to [facility]. We will follow patient there. Zytiga will be started in a day or two. MD CELENA Ng/MODL /[id number]
== END 2018-11-23 18:55 | DRG 871 ==
LOC: ER 16:32 → ERHOLD 21:13 → MED/SURG3 22:00 → OBSVTOIN 11-17 10:49
PROVIDERS: ADMIT Internal Medicine; ATTEND Internal Medicine
PROC: 02HV33Z Insertion of Infusion Device into Superior Vena Cava, Percutaneous Approach (ICD-10-PCS; principal; 2018-11-23)
DX: A41.9 Sepsis, unspecified organism (principal); R65.21 Severe sepsis with septic shock; N39.0 Urinary tract infection, site not specified; N17.9 Acute kidney failure, unspecified; L03.114 Cellulitis of left upper limb; N13.6 Pyonephrosis; N13.8 Other obstructive and reflux uropathy; Q60.0 Renal agenesis, unilateral; E87.1 Hypo-osmolality and hyponatremia; Z94.0 Kidney transplant status; C61 Malignant neoplasm of prostate; N40.1 Benign prostatic hyperplasia with lower urinary tract symptoms; Z96.653 Presence of artificial knee joint, bilateral; I51.7 Cardiomegaly; B96.20 Unspecified Escherichia coli [E. coli] as the cause of diseases classified elsewhere; E87.6 Hypokalemia; F50.89 Other specified eating disorder; Z68.34 Body mass index [BMI] 34.0-34.9, adult; I12.9 Hypertensive chronic kidney disease with stage 1 through stage 4 chronic kidney disease, or unspecified chronic kidney disease; N18.9 Chronic kidney disease, unspecified
CPT/HCPCS: 36415; 36569; 71045; 74018; 78707; 80048; 80053; 80202; 81001; 83605; 83735; 83880; 84100; 85025; 85610; 85730; 87040; 87086; 87186; 93005; 93306; 93971; 94640; 96361; 97139; 99284; A9562; G0378; J0360; J0690; J0696; J1940; J2543; J3370; J7030; J7050; J7512

== ENCOUNTER 2019-01-16 17:04 | Inpatient (IN) | payer MEDICARE, OTHER ==
[~2019-01-16] VITALS: Ht 175.3 cm; Wt 106.6 kg
[~2019-01-16 17:04] MED LIST changes: +ASCORBIC ACID500 MG PO; +Calcium Carbonate PO; +METOPROLOL TART25 MG PO; +TYLENOL WITH C1 EACH PO
[2019-01-16 17:42] LABS: BASOPHILS % 0.3 % (0.0-1.0); EOSINOPHILS # (AUTO) 0.3 (0.0-0.4); EOSINOPHILS % 3.2 % (0.0-6.0); HEMATOCRIT 26.1 % (38.2-49.6); HEMOGLOBIN 7.2 g/dL (14.0-18.0); LYMPHOCYTES # (AUTO) 1.1 (1.0-3.2); LYMPHOCYTES % 11.7 % (18.0-39.1); MEAN CORPUSCULAR HEMOGLOBIN 22.9 pg (28-32); MEAN CORPUSCULAR HGB CONC 27.6 g/dL (31-35); MEAN CORPUSCULAR VOLUME 82.9 fL (81-99); MONOCYTES # (AUTO) 0.5 (0.2-0.8); MONOCYTES % 4.7 % (4.4-11.3); NEUTROPHILS # (AUTO) 7.6 (2.1-6.9); NEUTROPHILS % 79.4 % (38.7-80.0); PLATELET COUNT 340 x10e3/uL (140-360); RED BLOOD COUNT 3.15 x10e6/uL (4.3-5.7); RED CELL DISTRIBUTION WIDTH 21.8 % (11.7-14.4)
[2019-01-16 17:57] LABS: ALBUMIN 2.9 g/dL (3.5-5.0); ANION GAP 15.9 mmol/L (8-16); CALCIUM 9.4 mg/dL (8.4-10.2); CREATININE, SERUM 1.22 mg/dL (0.72-1.25); POTASSIUM 3.9 mmol/L (3.5-5.1)
[2019-01-16 17:59] LABS: INR 0.92; PROTHROMBIN TIME 12.9 seconds (11.9-14.5)
[2019-01-16 18:00] LABS: PARTIAL THROMBOPLASTIN TIME 23.1 seconds (23.8-35.5)
[2019-01-16 18:03] LABS: CREATINE KINASE MB 1.1 ng/mL (0-5.0)
--- NOTE | 2019-01-16 18:06 | Diagnostic Imaging Report ---
EXAMINATION: CHEST SINGLE (PORTABLE) COMPARISON: Chest x-ray 11/23/2018 INDICATION: Weakness ^CHEST PAIN ^[id number] ^1740 ^Y DISCUSSION: Frontal view of the chest obtained at 1722 hours. HEART AND MEDIASTINUM: Stable cardiomegaly and aortic tortuosity. LINES: None. LUNGS: Diffuse hyperinflation suggestive of small airways disease. No pneumonia or pulmonary edema. PLEURA: No pleural effusion or pneumothorax. BONES AND SOFT TISSUES: Stable degenerative changes of the shoulders. The soft tissues are normal. IMPRESSION: Stable chest. No acute cardiopulmonary disease. Signed by: Dr. Carmen Miller MD on 01/16/2019 6:02 PM
--- NOTE | 2019-01-16 18:48 | NUR ---
RECTAL EXam done at bedsidee. STOOL FOR OCCULT BLOOD +.
[2019-01-16] MEDS ORDERED: FUROSEMIDE INJ 10 MG/ML 2 ML VIAL IV PRN ×2 (19:00→19:30)
[2019-01-16] MEDS ORDERED: SODIUM CHLORIDE 0.9% 250ML 250 ML IV ONE ×2 (19:00→19:30)
[2019-01-16] MEDS ORDERED: PANTOPRAZOLE 40 MG 10ML VIAL IV STA (19:19)
[2019-01-16] MEDS ORDERED: ABIRATERONE AC250 MG (20:03)
[2019-01-16] MEDS ORDERED: PREDNISONE10 MG (20:03)
[2019-01-16] MEDS ORDERED: OMEPRAZOLE40 MG (20:03)
[2019-01-16] MEDS ORDERED: LOPRESSOR25 MG (20:03)
[2019-01-16] MEDS ORDERED: FLOMAX0.4 MG (20:03)
--- NOTE | 2019-01-16 20:18 | NUR ---
consent signed for blood and placed on the chart
[2019-01-16] MEDS: PANTOPRAZOLE 40 MG 10ML VIAL IV SCH (21:00)
--- NOTE | 2019-01-16 21:33 | NUR ---
PT/FAMILY INFORMED OF ADMIT TO 208
[2019-01-16 23:30] VITALS: BP 148/92
--- NOTE | 2019-01-16 23:49 | NUR ---
PATIENT HAS EPISODES OF VT ACCORDING TO TELEMETRY STAFF PATIENT HAD VT SINCE HE WAS AT THE E.R. PATIENT IS ALERT NO COMPLAINS. BP 119/65 MMHG. MI=74 B/MIN. JOSE MANUEL ROTHMAN NOTIFIED NEW ORDER RECEIVED.
[2019-01-16 23:58] VITALS: BP 119/65
[2019-01-17] VITALS (8 sets, daily range): BP systolic 100–153; BP diastolic 55–87
[2019-01-17] MEDS ORDERED: SODIUM CHLORIDE 0.9% 250ML 250 ML ONE ×2 (00:05→06:15)
--- NOTE | 2019-01-17 00:30 | NUR ---
LAB RESULT IS STILL NOT IN DUE TO MACHINE UNDER MAINTENANCE AT THE LAB
--- NOTE | 2019-01-17 01:00 | NUR ---
1 UNIT PRBC STARTED. PATIENTS VITAL SIGNS WITHIN NORMAL. VERIFIED WITH ANOTHER RN.
--- NOTE | 2019-01-17 03:00 | NUR ---
follow up lab result from the lab. instrument/control technician states machine is still under maintenance.
--- NOTE | 2019-01-17 03:53 | NUR ---
PATIENT TOLERATED BLOOD TRANSFUSION WELL. NO ADVERSE REACTION.
[2019-01-17] MEDS ORDERED: FUROSEMIDE INJ 10 MG/ML 4 ML VIAL IV ONE (06:00)
[2019-01-17] MEDS ORDERED: METOPROLOL TARTRATE INJ 1 MG/ML VIAL IV PRN (06:00)
[2019-01-17] MEDS ORDERED: ONDANSETRON HCL INJ 2MG/ML 2ML 2 MG/ML VIAL IV PRN (06:00)
[2019-01-17] MEDS ORDERED: ACETAMINOPHEN 325 MG TAB PO PRN (06:00)
[2019-01-17] MEDS ORDERED: ACETAMINOPHEN/CODEINE 300MG - 30MG TAB PO PRN (06:00)
[2019-01-17] MEDS ORDERED: POTASSIUM CHLORIDE 20MEQ/100ML 100 ML IV ONE (06:00)
--- NOTE | 2019-01-17 06:43 | NUR ---
Paged dr. John for consultation thru police district switchboard operator. waiting for response.
--- NOTE | 2019-01-17 06:45 | NUR ---
Paged Dr Davila thru hot punch press operator for consultation. Awaiting for response.
[2019-01-17 06:46] LABS: BASOPHILS % 0.4 % (0.0-1.0); EOSINOPHILS # (AUTO) 0.1 (0.0-0.4); EOSINOPHILS % 1.1 % (0.0-6.0); HEMATOCRIT 28.7 % (38.2-49.6); HEMOGLOBIN 7.8 g/dL (14.0-18.0); LYMPHOCYTES # (AUTO) 1.2 (1.0-3.2); LYMPHOCYTES % 14.7 % (18.0-39.1); MEAN CORPUSCULAR HEMOGLOBIN 22.7 pg (28-32); MEAN CORPUSCULAR HGB CONC 27.2 g/dL (31-35); MEAN CORPUSCULAR VOLUME 83.4 fL (81-99); MONOCYTES # (AUTO) 0.4 (0.2-0.8); MONOCYTES % 4.9 % (4.4-11.3); NEUTROPHILS # (AUTO) 6.1 (2.1-6.9); NEUTROPHILS % 78.3 % (38.7-80.0); PLATELET COUNT 309 x10e3/uL (140-360); RED BLOOD COUNT 3.44 x10e6/uL (4.3-5.7); RED CELL DISTRIBUTION WIDTH 21.3 % (11.7-14.4)
--- NOTE | 2019-01-17 07:00 | NUR ---
BEDSIDE SHIFT REPORT FROM NIGHT RN. PT DENIES NEEDS AT THIS TIME.
[2019-01-17 07:43] LABS: ALBUMIN 2.8 g/dL (3.5-5.0); ALKALINE PHOSPHATASE 72 IU/L (40-150); ANION GAP 14.3 mmol/L (8-16); BLOOD UREA NITROGEN 34 mg/dL (7-26); BUN/CREATININE RATIO 30 (6-25); CALCIUM 9.1 mg/dL (8.4-10.2); CARBON DIOXIDE 28 mmol/L (22-29); CHLORIDE 105 mmol/L (98-107); CREATININE, SERUM 1.14 mg/dL (0.72-1.25); EST GLOMERULAR FILTRATION RATE > 60 ML/MIN (60-); GLUCOSE 135 mg/dL (74-118); POTASSIUM 4.3 mmol/L (3.5-5.1); SODIUM 143 mmol/L (136-145)
[2019-01-17 07:44] LABS: ALANINE AMINOTRANSFERASE < 6 IU/L (0-55)
[2019-01-17] MEDS: METOPROLOL TARTRATE 25 MG TAB PO SCH ×2 (08:42→17:53)
[2019-01-17] MEDS: PANTOPRAZOLE 40 MG 10ML VIAL IV SCH ×2 (08:42→21:15)
[2019-01-17] MEDS ORDERED: DEXTROSE 50% SYRINGE 50 ML IV PRN (10:00)
[2019-01-17] MEDS: INSULIN REGULAR, HUMAN 100 UNIT/1 ML 3ML VIAL SQ SCH ×3 (11:30→21:00)
[2019-01-17 16:11] LABS: BASOPHILS % 0.4 % (0.0-1.0); EOSINOPHILS # (AUTO) 0.3 (0.0-0.4); EOSINOPHILS % 3.6 % (0.0-6.0); HEMATOCRIT 30.4 % (38.2-49.6); HEMOGLOBIN 8.8 g/dL (14.0-18.0); LYMPHOCYTES # (AUTO) 1.1 (1.0-3.2); LYMPHOCYTES % 12.6 % (18.0-39.1); MEAN CORPUSCULAR HEMOGLOBIN 23.2 pg (28-32); MEAN CORPUSCULAR HGB CONC 28.9 g/dL (31-35); MONOCYTES # (AUTO) 0.5 (0.2-0.8); MONOCYTES % 5.7 % (4.4-11.3); NEUTROPHILS # (AUTO) 6.9 (2.1-6.9); NEUTROPHILS % 77.4 % (38.7-80.0); PLATELET COUNT 332 x10e3/uL (140-360); RED CELL DISTRIBUTION WIDTH 20.7 % (11.7-14.4)
[2019-01-17 16:53] LABS: HYPOCHROMASIA SLIGHT; PLATELET MORPHOLOGY COMMENT FEW LARGE
[2019-01-17 20:42] LABS: CREATINE KINASE MB 0.7 ng/mL (0-5.0)
[2019-01-17] MEDS: TAMSULOSIN HCL 0.4 MG CAP PO SCH (21:15)
[2019-01-18] VITALS (8 sets, daily range): BP systolic 92–187; BP diastolic 50–87
[2019-01-18 01:11] LABS: CREATINE KINASE MB 0.7 ng/mL (0-5.0)
--- NOTE | 2019-01-18 01:30 | NUR ---
PATIENT SEEN BY DR Omega GUARDADO. NEW ORDERS RECEIVED TO DO EGD ONCE CONSENT IS SENT AND IF THE FAMILY MEMBERS AGREED TO PROCEED WITH THE PROCEDURE. CUSTOM SEAMSTRESS NOTIFIED OF PROCEDURE PLANS AND PENDING CONSENT FROM FAMILY. WILL NOTIFY FAMILY IN AM.
[2019-01-18 03:00] LABS: BASOPHILS # (AUTO) 0.1 (0.0-0.1); BASOPHILS % 0.6 % (0.0-1.0); EOSINOPHILS # (AUTO) 0.4 (0.0-0.4); EOSINOPHILS % 4.3 % (0.0-6.0); HEMATOCRIT 33.4 % (38.2-49.6); HEMOGLOBIN 9.9 g/dL (14.0-18.0); LYMPHOCYTES # (AUTO) 1.3 (1.0-3.2); LYMPHOCYTES % 14.8 % (18.0-39.1); MEAN CORPUSCULAR HEMOGLOBIN 23.9 pg (28-32); MEAN CORPUSCULAR HGB CONC 29.6 g/dL (31-35); MEAN CORPUSCULAR VOLUME 80.7 fL (81-99); MONOCYTES # (AUTO) 0.5 (0.2-0.8); MONOCYTES % 5.7 % (4.4-11.3); NEUTROPHILS # (AUTO) 6.2 (2.1-6.9); NEUTROPHILS % 73.9 % (38.7-80.0); PLATELET COUNT 363 x10e3/uL (140-360); RED BLOOD COUNT 4.14 x10e6/uL (4.3-5.7); RED CELL DISTRIBUTION WIDTH 21.1 % (11.7-14.4)
[2019-01-18 03:29] LABS: ANION GAP 20.6 mmol/L (8-16); CALCIUM 9.7 mg/dL (8.4-10.2); CREATININE, SERUM 1.3 mg/dL (0.72-1.25); POTASSIUM 3.6 mmol/L (3.5-5.1)
[2019-01-18 03:31] LABS: % IRON SATURATION 5 % (15-50); IRON 23 ug/dL (65-175); TOTAL IRON BINDING CAPACITY 421 ug/dL (261-478); TRANSFERRIN 301 mg/dL (174-364)
[2019-01-18] MEDS ORDERED: FUROSEMIDE INJ 10 MG/ML 2 ML VIAL IV ONE (05:45)
[2019-01-18] MEDS ORDERED: POTASSIUM CHLORIDE 20MEQ/100ML 100 ML IV ONE ×2 (05:45→05:56)
[2019-01-18] MEDS ORDERED: FUROSEMIDE INJ 10 MG/ML 2 ML VIAL IV PRN (05:55)
--- NOTE | 2019-01-18 05:55 | NUR ---
SPOKE WITH PATIENT'S DAUGHTER REGARDING DR. GUARDADO'S PLAN TO DO EGD. PATIENT'S DAUGHTER WILL COME AND SIGN THE CONSENT. DR. GUARDADO AND SUPPLY REQUIREMENTS OFFICER NOTIFIED. WAITING FOR PATIENT'S DAUGHTER.
[2019-01-18 06:09] LABS: BASOPHILS # (AUTO) 0.1 (0.0-0.1); BASOPHILS % 0.6 % (0.0-1.0); EOSINOPHILS # (AUTO) 0.4 (0.0-0.4); EOSINOPHILS % 4.7 % (0.0-6.0); HEMATOCRIT 32.2 % (38.2-49.6); HEMOGLOBIN 9.4 g/dL (14.0-18.0); LYMPHOCYTES # (AUTO) 1.1 (1.0-3.2); LYMPHOCYTES % 14.4 % (18.0-39.1); MEAN CORPUSCULAR HEMOGLOBIN 23.3 pg (28-32); MEAN CORPUSCULAR HGB CONC 29.2 g/dL (31-35); MEAN CORPUSCULAR VOLUME 79.9 fL (81-99); MONOCYTES # (AUTO) 0.4 (0.2-0.8); MONOCYTES % 4.8 % (4.4-11.3); NEUTROPHILS # (AUTO) 5.9 (2.1-6.9); NEUTROPHILS % 75.1 % (38.7-80.0); PLATELET COUNT 267 x10e3/uL (140-360); RED BLOOD COUNT 4.03 x10e6/uL (4.3-5.7)
--- NOTE | 2019-01-18 06:43 | NUR ---
PATIENT'S DAUGHTER SIGNED CONSENT DUE TO PATIENT'S POOR VISION. DR. GUARDADO AND MOPPER MADE AWARE. EGD CAN BE DONE AT 07:[address] Ila GUARDADO IS AWARE.
--- NOTE | 2019-01-18 07:00 | NUR ---
BEDSIDE SHIFT REPORT FROM NIGHT RN. PT DENIES NEEDS AT THIS TIME.
[2019-01-18] MEDS: INSULIN REGULAR, HUMAN 100 UNIT/1 ML 3ML VIAL SQ SCH ×4 (07:30→21:00)
[2019-01-18 07:39] LABS: PLATELET ESTIMATE ADEQUATE
--- NOTE | 2019-01-18 07:45 | NUR ---
PT OFF THE FLOOR TO ENDO.
--- NOTE | 2019-01-18 09:00 | NUR ---
PT BACK TO THE FLOOR FROM ENDO. VITALS WNL. PT DENIES NEEDS AT THIS TIME.
[2019-01-18] MEDS: PANTOPRAZOLE 40 MG 10ML VIAL IV SCH ×2 (09:13→21:02)
[2019-01-18] MEDS: IRON SUCROSE 100 MG in SODIUM CHLORIDE 0.9% 100 ML 100 ML IV SCH (09:13)
[2019-01-18] MEDS: METOPROLOL TARTRATE 25 MG TAB PO SCH ×2 (09:14→17:00)
--- NOTE | 2019-01-18 12:50 | Operative Report ---
DATE OF PROCEDURE: 01/18/2019 SURGEON: Jaswant Short MD PROCEDURE: Esophagogastroduodenoscopy. INDICATIONS FOR EGD: Anemia, history of melena, guaiac-positive stools. MEDICATIONS: The patient was done under MAC, please see anesthesiologist's note. PROCEDURE IN DETAIL: With the patient in left lateral decubitus position, a flexible fiberoptic Olympus gastroscope was introduced into the esophagus under direct visualization without any difficulty. There was some patchy erythema noted in distal esophagus. The scope was then advanced with ease into the stomach. Mucosa overlying the antrum and the body revealed some diffuse erythema. There was no active bleeding or stigmata of recent hemorrhage. The pylorus was intubated with ease and the scope was advanced all the way to the second portion of the duodenum. Mucosa overlying the proximal second portion and duodenal bulb grossly appeared to be within normal limits. The scope was then withdrawn back into the stomach and retroflexed and mucosa overlying the fundus and cardia appeared to be within normal limits. The scope was then straightened out, it was subsequently withdrawn. The patient tolerated the procedure well. IMPRESSION: 1. Distal esophagitis, mild. 2. Gastritis. 3. Normal duodenum. PLAN: Follow H and H. Continue PPI therapy. Findings do not necessarily explain patient's blood loss or anemia. Discussed with the patient's family. We will hold off for now on colonoscopy. Jaswant Short MD [facility]/ROSMERY /[id number] cc: Alexis Barbour MD
[2019-01-18 13:49] LABS: BASOPHILS % 0.4 % (0.0-1.0); EOSINOPHILS # (AUTO) 0.3 (0.0-0.4); EOSINOPHILS % 3.8 % (0.0-6.0); HEMATOCRIT 34.1 % (38.2-49.6); HEMOGLOBIN 9.7 g/dL (14.0-18.0); LYMPHOCYTES # (AUTO) 1.7 (1.0-3.2); LYMPHOCYTES % 21.3 % (18.0-39.1); MEAN CORPUSCULAR HEMOGLOBIN 23.1 pg (28-32); MEAN CORPUSCULAR HGB CONC 28.4 g/dL (31-35); MEAN CORPUSCULAR VOLUME 81.2 fL (81-99); MONOCYTES # (AUTO) 0.5 (0.2-0.8); MONOCYTES % 6.1 % (4.4-11.3); NEUTROPHILS # (AUTO) 5.4 (2.1-6.9); PLATELET COUNT 324 x10e3/uL (140-360); RED CELL DISTRIBUTION WIDTH 21.1 % (11.7-14.4)
[2019-01-18] MEDS ORDERED: PROPOFOL IV EMULSION 10 MG/ML 50 ML VIAL ONE (16:42)
[2019-01-18] MEDS ORDERED: LIDOCAINE HCL 2% LOCAL INJ 5 ML SDV VIAL INJ ONE (16:42)
[2019-01-18 18:57] LABS: BASOPHILS % 0.4 % (0.0-1.0); EOSINOPHILS # (AUTO) 0.3 (0.0-0.4); EOSINOPHILS % 4.1 % (0.0-6.0); HEMATOCRIT 32.1 % (38.2-49.6); HEMOGLOBIN 9.5 g/dL (14.0-18.0); LYMPHOCYTES % 13.8 % (18.0-39.1); MEAN CORPUSCULAR HEMOGLOBIN 23.6 pg (28-32); MEAN CORPUSCULAR HGB CONC 29.6 g/dL (31-35); MEAN CORPUSCULAR VOLUME 79.7 fL (81-99); MONOCYTES # (AUTO) 0.4 (0.2-0.8); NEUTROPHILS # (AUTO) 5.8 (2.1-6.9); NEUTROPHILS % 76.4 % (38.7-80.0); PLATELET COUNT 331 x10e3/uL (140-360); RED BLOOD COUNT 4.03 x10e6/uL (4.3-5.7)
[2019-01-18] MEDS: TAMSULOSIN HCL 0.4 MG CAP PO SCH (21:02)
[2019-01-19] VITALS (8 sets, daily range): BP systolic 86–122; BP diastolic 47–65
[2019-01-19 02:46] LABS: BASOPHILS % 0.5 % (0.0-1.0); EOSINOPHILS # (AUTO) 0.3 (0.0-0.4); EOSINOPHILS % 3.7 % (0.0-6.0); HEMATOCRIT 33.1 % (38.2-49.6); HEMOGLOBIN 9.6 g/dL (14.0-18.0); LYMPHOCYTES # (AUTO) 1.2 (1.0-3.2); LYMPHOCYTES % 15.9 % (18.0-39.1); MEAN CORPUSCULAR HEMOGLOBIN 23.2 pg (28-32); MEAN CORPUSCULAR VOLUME 80.1 fL (81-99); MONOCYTES # (AUTO) 0.5 (0.2-0.8); MONOCYTES % 6.8 % (4.4-11.3); NEUTROPHILS # (AUTO) 5.6 (2.1-6.9); NEUTROPHILS % 72.7 % (38.7-80.0); PLATELET COUNT 341 x10e3/uL (140-360); RED BLOOD COUNT 4.13 x10e6/uL (4.3-5.7); RED CELL DISTRIBUTION WIDTH 21.3 % (11.7-14.4)
[2019-01-19 03:04] LABS: ANION GAP 18.3 mmol/L (8-16); CALCIUM 9.4 mg/dL (8.4-10.2); CREATININE, SERUM 1.41 mg/dL (0.72-1.25); POTASSIUM 3.3 mmol/L (3.5-5.1)
[2019-01-19] MEDS ORDERED: POTASSIUM CHLORIDE 20 MEQ TAB CR PO STA (05:53)
[2019-01-19] MEDS ORDERED: SODIUM CHLORIDE 0.9% 1000ML 1,000 ML IV SCH (06:00)
[2019-01-19] MEDS ORDERED: ASCORBIC ACID500 MG PO (06:02)
[2019-01-19] MEDS ORDERED: OMEPRAZOLE40 MG PO (06:02)
[2019-01-19] MEDS ORDERED: FERROUS SULFAT325 MG PO (06:02)
[2019-01-19] MEDS ORDERED: CEFTIN PO (06:02)
[2019-01-19] MEDS: CEFTRIAXONE SOD 1 GM/NS 50 ML 50 ML IV SCH (06:13)
--- NOTE | 2019-01-19 07:00 | NUR ---
BEDSIDE SHIFT REPORT RECEIVED FROM THE LEGISLATIVE ANALYST RN. PT FAMILY AT BEDSIDE. EDUCATED PT ABOUT FALL PRECAUTIONS. SIDE RAILS X 2. CALL LIGHT WITH IN EASY REACH. INSTRUCTED PT TO USE CALL LIGHT FOR ALL NEEDS. PT VERBALIZED UNDERSTANDING. PT DENIES NEEDS AT THIS TIME.
[2019-01-19] MEDS: INSULIN REGULAR, HUMAN 100 UNIT/1 ML 3ML VIAL SQ SCH ×4 (08:30→21:00)
[2019-01-19] MEDS ORDERED: INFLUENZA VIRUS VAC SPLIT INJ 0.5 ML SYR IM ONE (09:00)
[2019-01-19] MEDS ORDERED: PNEUMOCOCCAL VACCINE POLYVALENT 23 MCG/0.5 ML VIAL IM ONE (09:00)
[2019-01-19] MEDS: PANTOPRAZOLE 40 MG 10ML VIAL IV SCH ×2 (09:02→21:11)
[2019-01-19] MEDS: METOPROLOL TARTRATE 25 MG TAB PO SCH ×2 (09:05→17:35)
[2019-01-19] MEDS: IRON SUCROSE 100 MG in SODIUM CHLORIDE 0.9% 100 ML 100 ML IV SCH (09:05)
--- NOTE | 2019-01-19 09:30 | NUR ---
PT REFUSED VACCINES AT THIS MOMENT. PER THE PT, HE WANTS TO SLEEP NOW.
--- NOTE | 2019-01-19 11:00 | NUR ---
KRYSTYNA MATOS NP AND REPORTED THE URINE CULTURE RESULT. NO NEW ORDERS RECEIVED.
--- NOTE | 2019-01-19 12:00 | NUR ---
PER THE FAMILY, PT TAKES PREDNISONE WITH FLOMAX AND TAKEN PREDNISONE TODAY FROM HOME MED. INFORMED THE SAME TO LORNA MATOS. EDUCATED PT AND FAMILY ABOUT HOSPITAL POLICY ON MEDS. CONTINUE PREDNISONE FROM TOMORROW PER CARLO.
--- NOTE | 2019-01-19 12:15 | NUR ---
DR. LAI AT BEDSIDE. PER THE FAMILY, DR. HADLEY IS THE UROLOGIST FOR THE PT. NEW ORDER FOR CONSULT DR. HADLEY PER DR. LAI.
--- NOTE | 2019-01-19 12:40 | NUR ---
DR. HADLEY AT BEDSIDE. NEW ORDER FOR START [facility] HOME MED. INFORMED THE SAME TO PHARMACY.
--- NOTE | 2019-01-19 14:00 | NUR ---
[facility] TO D/C PT PER DR. LAI
[2019-01-19] MEDS ORDERED: PNEUMOCOCCAL VACCINE POLYVALENT 23 MCG/0.5 ML VIAL IM SCH (15:00)
[2019-01-19] MEDS ORDERED: INFLUENZA VIRUS VAC SPLIT INJ 0.5 ML SYR IM SCH (15:00)
--- NOTE | 2019-01-19 19:00 | NUR ---
BEDSIDE SHIFT REPORT GIVEN TO THE COLLABORATIVE PHYSICIAN RN. PT DENIES NEEDS AT THIS TIME. PT FAMILY AT BEDSIDE.
--- NOTE | 2019-01-19 19:05 | NUR ---
KRYSTYNA MATOS NP AND REPORTED THE K LEVEL. NO NEW ORDERS RECEIVED.
[2019-01-19] MEDS ORDERED: PREDNISONE 10 MG TAB PO SCH (21:00)
[2019-01-19] MEDS ORDERED: ABIRATERONE ACETATE 1000 MG PO SCH (21:00)
[2019-01-19] MEDS: TAMSULOSIN HCL 0.4 MG CAP PO SCH (21:11)
--- NOTE | 2019-01-19 22:01 | Consultation ---
DATE OF CONSULTATION: 01/19/2019 CONSULTING PHYSICIAN: Dr. Jhon John, Hematology and Oncology Service. REASON FOR CONSULTATION: Evaluation and management of patient with known history of prostate cancer, presented with symptomatic anemia. HISTORY OF PRESENTING ILLNESS: Mr. Brar is a very pleasant 88-year-old gentleman with known history of hypertension, hyperlipidemia, anemia, chronic renal insufficiency, and metastatic prostate cancer, who was initially treated with radiation treatment 20 years ago. Subsequently, he received androgen deprivation therapy. Apparently, he had progressive disease while on androgen blockade. Subsequently started on Zytiga and prednisone therapy, which he has been taking and tolerating it well. His most recent PSA was in reasonable range. Now he has presented to the Emergency Department due to symptomatic anemia. On arrival, he was noted to have hemoglobin of 7.2, subsequently underwent PRBC transfusion. Hematology/Oncology has been consulted to assist with the management. Presently, the patient is lying comfortably, not in acute distress breathing normally. He is feeling fatigued and tired. He is hard of hearing. Family is at bedside. PAST MEDICAL HISTORY: 1. Hypertension. 2. Hyperlipidemia. 3. History of kidney stone. 4. Chronic kidney disease. 5. History of anemia. 6. Metastatic prostate cancer. PAST SURGICAL HISTORY: 1. Orchiectomy. 2. Kidney stone. 3. Solitary kidney. SOCIAL HISTORY: Denies history of illicit drug use, alcohol use, or history of smoking. FAMILY HISTORY: Negative for cancer. ALLERGIES: NO KNOWN DRUG ALLERGIES. CURRENT MEDICATIONS: Reviewed as per electronic medical record. REVIEW OF SYSTEMS: A 14-point review of systems negative except as mentioned in history of presenting illness. PHYSICAL EXAMINATION: VITAL SIGNS: Reviewed as per electronic medical record. HEENT: PERRLA. Extraocular movements are intact. Head is atraumatic and normocephalic. NECK: Supple. CVS: S1, S2 audible. RESPIRATORY: Decreased bilateral air entry. ABDOMEN: Soft. Positive bowel sounds. EXTREMITIES: Trace edema. NEURO: The patient is alert and awake. LABORATORY DATA: Reviewed as per electronic medical record. ASSESSMENT AND PLAN: Mr. Brar is a very pleasant 88-year-old gentleman, who is very well known to me as he is my clinic patient and has been getting treatment for metastatic prostate cancer. He is receiving prednisone and Zytiga therapy. Overall, from cancer standpoint, he is very stable. Presently, he is having symptomatic anemia. GI has been consulted. Workup has been progressed. Most supportive care. Thank you for the consultation. I will continue to be available. Please call with questions. MD CELENA Ng/ROSMERY /[id number]
[2019-01-20] VITALS (7 sets, daily range): BP systolic 96–168; BP diastolic 49–72
[2019-01-20 05:39] LABS: BASOPHILS % 0.2 % (0.0-1.0); EOSINOPHILS % 0.2 % (0.0-6.0); HEMATOCRIT 31.4 % (38.2-49.6); HEMOGLOBIN 8.8 g/dL (14.0-18.0); LYMPHOCYTES # (AUTO) 0.8 (1.0-3.2); LYMPHOCYTES % 12.1 % (18.0-39.1); MEAN CORPUSCULAR HEMOGLOBIN 23.5 pg (28-32); MONOCYTES # (AUTO) 0.2 (0.2-0.8); MONOCYTES % 2.6 % (4.4-11.3); NEUTROPHILS # (AUTO) 5.6 (2.1-6.9); NEUTROPHILS % 84.3 % (38.7-80.0); PLATELET COUNT 298 x10e3/uL (140-360); RED BLOOD COUNT 3.74 x10e6/uL (4.3-5.7); RED CELL DISTRIBUTION WIDTH 21.2 % (11.7-14.4)
[2019-01-20] MEDS: CEFTRIAXONE SOD 1 GM/NS 50 ML 50 ML IV SCH (05:54)
[2019-01-20 05:59] LABS: ANION GAP 13.5 mmol/L (8-16); CREATININE, SERUM 1.34 mg/dL (0.72-1.25); POTASSIUM 4.5 mmol/L (3.5-5.1)
--- NOTE | 2019-01-20 07:00 | NUR ---
BEDSIDE SHIFT REPORT RECEIVED FROM THE BIOANALYST RN. PT FAMILY AT BEDSIDE. EDUCATED PT ABOUT FALL PRECAUTIONS. SIDE RAILS X 2. CALL LIGHT WITH IN EASY REACH. INSTRUCTED PT TO USE CALL LIGHT FOR ALL NEEDS. PT VERBALIZED UNDERSTANDING. PT DENIES NEEDS AT THIS TIME.
[2019-01-20] MEDS: INSULIN REGULAR, HUMAN 100 UNIT/1 ML 3ML VIAL SQ SCH ×3 (08:30→17:30)
[2019-01-20] MEDS: PANTOPRAZOLE 40 MG 10ML VIAL IV SCH (09:09)
[2019-01-20] MEDS ORDERED: SODIUM CHLORIDE 0.9% 250ML 250 ML ONE (09:23)
[2019-01-20] MEDS: IRON SUCROSE 100 MG in SODIUM CHLORIDE 0.9% 100 ML 100 ML IV SCH (09:30)
[2019-01-20] MEDS: METOPROLOL TARTRATE 25 MG TAB PO SCH ×2 (09:45→17:00)
--- NOTE | 2019-01-20 10:15 | NUR ---
PAGED DR. JOHNSON REGARDING PT D/C. WAITING FOR THE CALL BACK.
--- NOTE | 2019-01-20 10:30 | NUR ---
PAGESofy GUARDADO AND INFORMED PT HGB VALUES. OKAY TO D/C PT PER DR. Omega GUARDADO
--- NOTE | 2019-01-20 14:00 | NUR ---
Home O2 eval was done. Pt is 88% on RA. CM to pt's bedside. directed CM to call daughter Kaur Tabor. CM called and spoke to Kaur and informed her that per home O2 eval, pt qualifies for home oxygen. But CM informed her that pt would need a qualifying diagnosis for Medicare. Informed her that if pt did not have qualifying diagnosis, and they want oxygen, they would have to pay out of pocket. She verbalized understanding and states she was fine with CM sending referral to any company that takes pt's insurance for them to look at his clinicals. Choice given for [facility]. Signed choice letter placed in chart. Referral was faxed to [facility] at [phone]. Mickye Atkins with [facility] was notified.
--- NOTE | 2019-01-20 15:40 | NUR ---
PT DAUGHTER INFORMED TO CALL AMBULANCE AFTER SHE REACH AT THE HOSPITAL.
--- NOTE | 2019-01-20 16:10 | NUR ---
Resumption order faxed to [facility] at [phone]. CM spoke to Christin earlier today and informed her that we are anticipating discharge for pt today. She states if he discharges, they will see him tomorrow. HOME HEALTH DISCHARGE NOTE PATIENT ADDRESS WHERE SERVICE WILL BE RECEIVED: [address] , [place] [address] PATIENT CONTACT NUMBER: [phone] NAME OF HOME HEALTH COMPANY: [facility] TELEPHONE/FAX NUMBER OF COMPANY: [phone] / [phone] ADDRESS OF [place]: [address] [place] [id number] SERVICES TO RECEIVE: resume previous service - SN, PT, OT ANTICIPATED DATE SERVICES WILL BEGIN: January 21, 2019 Please call the company above if you have not received a call to schedule a home visit within 24 hours of discharge.
--- NOTE | 2019-01-20 16:15 | NUR ---
Mickey Damico is here at the [facility] delivering portable oxygen now.
--- NOTE | 2019-01-20 17:25 | NUR ---
CALLED PT DAUGHTER REGARDING PT D/C. DAUGHTER REQUESTED TO HOLD PT FOR ONE MORE DAY AT THE HOSPITAL. INFORMED PT DAUGHTER REGARDING HOSPITAL D/C POLICY AND D/C ORDER. 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 PT DAUGHTER AGREED ABOUT THE D/C PLAN AND PHONE CONSENT RECEIVED TO CALL [facility] FOR TRANSPORTATION. PT AND FAMILY DENIED FURTHER NEEDS.
--- NOTE | 2019-01-20 18:05 | NUR ---
PT DAUGHTER JEFF REACHED AT THE HOSPITAL. PT DAUGHTER HAS CONCERN ON DISCHARGE SINCE NO HOSPITAL BED AT HOME. INFORMED THE CONCERN TO JOHN ROTHMAN AND FITTING ROOM INSPECTOR. FITTING ROOM INSPECTOR WILL TALK TO PT FAMILY.
--- NOTE | 2019-01-20 18:20 | NUR ---
POWDERED SUGAR PULVERIZER OPERATOR AT BEDSIDE TO TALK TO THE FAMILY.
--- NOTE | 2019-01-20 18:45 | NUR ---
PT FAMILY AGREED WITH D/C PLAN. OKAY TO CALL [facility] FOR TRANSPORTING THE PT. PT AND FAMILY DENIED FURTHER NEEDS.
--- NOTE | 2019-01-20 19:00 | NUR ---
BEDSIDE SHIFT REPORT GIVEN TO THE DEAD MAIL CHECKER RN. PT AND FAMILY DENIED FURTHER NEEDS.
[2019-01-20] MEDS ORDERED: PREDNISONE 5 MG TAB PO SCH (21:00)
--- NOTE | 2019-01-20 23:21 | Consultation ---
DATE OF CONSULTATION: 01/20/2019 SERVICE: Urology. HISTORY OF PRESENT ILLNESS: This is an 88-year-old patient, who was admitted to the hospital with GI bleed requiring a blood transfusion. The patient had anemia and was treated for that. The patient is known to our office, he is being treated by a Dr. Guo for cancer of the prostate. PAST MEDICAL HISTORY: Significant for. 1. Hypertension. 2. Hyperlipidemia. 3. History of kidney stone. 4. History of chronic kidney disease. 5. CA of the prostate, metastatic. 6. History of radiotherapy to the prostate. SOCIAL HISTORY: Denies history of using of illicit drugs, alcohol, or smoking. FAMILY HISTORY: Negative for cancer. ALLERGIES: ALLERGY TO MEDICATIONS NO KNOWN. MEDICATIONS: See MAR. REVIEW OF SYSTEMS: 12-systems were reviewed. Presently, all were negative. Does not complain of any pain. PHYSICAL EXAMINATION: GENERAL: The patient appears to be alert and oriented. Does not seem to be in acute distress. VITAL SIGNS: Blood pressure 140/86, pulse 88, temperature 98.2, and respirations 18. HEENT: Head, symmetric. Eyes, normal movement. NECK: No JVD. No masses. CHEST: Clear. HEART: Regular. ABDOMEN: Soft. EXTERNAL GENITALIA: No palpable testicle, status post orchiectomy for the prostate cancer. EXTREMITIES: Lower extremities move all. LABORATORY DATA: Reviewed. White count 7.86, hemoglobin 9.4, creatinine of 1.34, BUN 25. Sodium 141, potassium 4.5, chloride 104, bicarb 28. Urinalysis, bloody. IMPRESSION: 1. History of gastrointestinal bleeding. 2. Anemia. 3. History of atrial fibrillation. 4. Cancer of the prostate. 5. History of radiotherapy. 6. Status post bilateral orchiectomy. 7. History of chest pain on admission. 8. History of retention. PLAN: The patient presently will not require any additional intervention. We will follow with you. MD BERTO Cobian/MODL /[id number]
--- NOTE | 2019-01-21 07:23 | Discharge Summary ---
HISTORY: Mr. Brar is 88-year-old male sent from the emergency department by [employer] due to elevated troponins. That day, he complained of substernal dural chest pain that did not radiate. He had no other symptoms. He also complained of black stools and increased fatigue over the past week. PAST MEDICAL HISTORY: Significant for prostate cancer, peripheral vascular disease, anemia, hypertension, and benign prostatic hypertrophy. PAST SURGICAL HISTORY: Bilateral total knee replacements, bilateral cataract surgery, bilateral orchiectomy, kidneys surgery, and lower back surgery. FAMILY HISTORY: Noncontributory. SOCIAL HISTORY: Noncontributory. ALLERGIES: NO KNOWN DRUG ALLERGIES. ADMITTING DIAGNOSES: 1. Acute blood loss anemia secondary to GI bleed. 2. Hypertension. 3. History of prostate cancer. 4. Benign prostatic hyperplasia. 5. Elevated B-type natriuretic peptide. 6. Obesity with BMI of 34.7. 7. Chest pain with elevated troponin. DISCHARGE DIAGNOSES: 1. Acute blood loss anemia secondary to GI bleed. 2. Hypertension. 3. History of prostate cancer. 4. Benign prostatic hyperplasia. 5. Elevated B-type natriuretic peptide. 6. Obesity with BMI of 34.7. 7. Chest pain with elevated troponin. HOSPITAL COURSE: The patient underwent EGD on 01/18/[address] Jaswant Short, who is a GI media consultant. Impression was distal esophagitis, mild gastritis, and normal duodenum. Colonoscopy was not done. According to the family, the patient did not want it stating that he is tired. A chest x-ray was done on January 16, which was stable. On admission, WBCs 9.51, hemoglobin 7.2, hematocrit 26.1, and platelets 340. On discharge, hemoglobin 8.8, hematocrit 31.4. On January 16, PT 12.9, INR 0.92, and PTT 23.1. On admission, potassium 3.9, BUN 37, creatinine 1.22, and GFR 56. Creatine kinase 11, CK-MB 1.1, and troponin I 0.02. B-type natriuretic peptide 365.3. Subsequent creatine kinase 17 and 23, CK-MB 1 and 0.7, and troponin I of 0.013 and 0.004. Today on the day of discharge, potassium 4.5, yesterday was 3.3. Today, BUN 25, creatinine 1.34, GFR 51. On January 17, fecal occult blood test was positive. His urinalysis was positive for UTI and final urine culture showed Enterobacter aerogenes. The patient was given IV Rocephin for the UTI. Discharge WBC 6.61. According to the family, the patient has been confused, but is much more calm now since the Zytiga and prednisone were resumed for his prostate cancer. Dr. John with Oncology/Hematology saw the patient yesterday, who states he is stable from Oncology standpoint. Additional consult Dr. Guo with Urology as well as Dr. David Mcgrath with Cardiology, Dr. Sheppard, his liquor grinder mill operator with Dr. Mcgrath has seen the patient on December 27 for multifocal atrial tachycardia, supraventricular tachycardia, and rule out atrial flutter with 2-1 ventricular response with a ventricular rate 133 to 150 beats per minute. Per documentation in March 2017, his echocardiogram showed an ejection fraction of 60% to 65%. The patient received 2 units of blood shortly after arrival on January 17. He had an echocardiogram, which also showed an ejection fraction of 60% to 65% with pericardial effusion. I spoke with JOLANTA Diaz, the bedside nurse today and he stated that he has already spoken to Dr. Guo as well as the Cardiology service and they are okay with his being discharged. Dr. Short also gave approval and discussed the case with Dr. John and he does not want to administer any additional IV iron prior to discharge. The patient has been receiving home health through [facility] and Dr. Reid Tovar as the PCP that sees the patient at home. I did speak with the family regarding at least speaking to the PCP about hospice, as the patient did not want colonoscopy, as he has had prostate cancer about 20 years and could potentially have colon cancer with active GI bleed and positive FOBT. I explained to them that they could discuss hospice and receive education about it from a company and then decide whether or not they want it. The patient has been seeing and speaking to relatives. We will send him home on Ceftin 500 mg b.i.d., ascorbic acid, omeprazole, and ferrous sulfate. Activity as tolerated. Continue ADA diet. Dictated by Vlad Simmons NP MD ALVIN Casarez/SKYLARL /[id number]
--- NOTE | 2019-01-25 11:28 | Consultation ---
DATE OF CONSULTATION: 01/19/2019 Urologic consultation. Consultation was called by Dr. Barbour. CHIEF COMPLAINT/REASON FOR CONSULTATION: Prostate cancer. HISTORY OF PRESENT ILLNESS: Mr. Brar is an 88-year-old male patient admitted to hospital with chest pain, shortness of breath, and a GI bleed. He has been seeing Dr. Barber for Oncology for his prostate cancer for many years and treated with radiation as well as orchiectomy. Denied dysuria, remote gross hematuria. PAST MEDICAL HISTORY: Prostate cancer, hypertension, kidney stones, peripheral vascular disease, atrial tachycardia, solitary kidney, bilateral total knee replacement, cataract surgery, orchiectomy, kidney surgery in 2004, back surgery in 2015. MEDICATIONS: Please see MAR. ALLERGIES: NKDA. SOCIAL HISTORY: No smoking or drinking. FAMILY HISTORY: Denied urologic stones or malignancies. REVIEW OF SYSTEMS: Noncontributory other than problems mentioned above for 12-organ systems. PHYSICAL EXAMINATION: GENERAL: Elderly male, in no distress. VITAL SIGNS: Currently, temperature 96.7, pulse 109, respirations 11, blood pressure 114/47. HEENT: Sclerae anicteric. NECK: Supple. BACK: Without costovertebral angle tenderness bilaterally. ABDOMEN: Soft. It is nontender. It is nondistended. No palpable mass. No palpable hernias. No palpable lymphadenopathy. : Normal male external genitalia. EXTREMITIES: No edema. NEURO: Moves all four extremities. PSYCH: Alert and mood appropriate. SKIN: Intact. Normal color. PERTINENT LABORATORY DATA: Hemoglobin 7.2, BMP normal except for a BUN of 37, creatinine 1.41, glucose 167. IMPRESSION: 1. Prostate cancer. 2. Acute on chronic renal failure. 3. Anemia. 4. Hypogonadism. PLAN: Urologically the patient is stable. Urologically, we will follow along with you. Thank you for allowing me to participate in the care of your patient. We will be happy to follow along with you. Enzo Guo MD ES/MODL /[id number] cc: Alexis Barbour MD
--- NOTE | 2019-02-13 17:19 | Consultation ---
DATE OF CONSULTATION: 01/16/2019 Cardiology Consultation. Thank you for asking me to see this nice man in consultation. Mr. Brar is a very elderly 88-year-old man known to us from previous evaluations by Dr. Sheppard. He presented to the emergency room on the with a complaint of noting blood in the stool. HISTORY OF PRESENT ILLNESS: This seems to be a new problem. His past medical history is complicated by a previous diagnosis of prostate cancer. Peripheral vascular disease, anemia, previous transfusion in the past. Previous bone marrow evaluation with results not known. He has had previous SVT and atrial fibrillation. PAST SURGICAL HISTORY: Includes bilateral knee replacements in 2005, cataract surgery in 1984, orchiectomy for prostate cancer in 2003, kidney stones. PERSONAL AND SOCIAL HISTORY: He does not currently smoke. PHYSICAL EXAMINATION: GENERAL: At this time, shows an elderly man, who looks pale. VITAL SIGNS: Blood pressure 126/63, pulse 75 and irregular. HEAD, EYES, EARS, NOSE, AND THROAT: Otherwise, unremarkable thorax. HEART: Sounds S1, S2 are irregular with a 1/6 systolic murmur. LUNGS: Clear. ABDOMEN: Protuberant, nontender. EXTREMITIES: No cyanosis, clubbing, or edema. PERTINENT LABORATORY STUDIES: Show hemoglobin 7.8, INR 0.9, BUN 34, and creatinine 1.1. BNP is 365. ASSESSMENTS: 1. Gastrointestinal bleeding, etiology not clear. 2. Atrial fibrillation, chronic. 3. History of prostate cancer. PLAN: Agree with fluids and transfusion and further gastrointestinal evaluation. Obviously, cannot be anticoagulated for his atrial fibrillation. We will follow closely with you. Thank you for asking me to see him in consultation. MD MELODY Armando/ROSMERY /[id number] cc: MD Chet Casarez MD Maurice S Haddad, MD
== END 2019-01-20 21:16 | disposition home or self-care (01) | DRG 377 ==
LOC: ER 17:30 → ERHOLD 19:19 → MED/SURG2 22:26 → UNDODISIN 01-20 20:07
PROVIDERS: ADMIT Internal Medicine; ATTEND Internal Medicine
PROC: 0DJ08ZZ Inspection of Upper Intestinal Tract, Via Natural or Artificial Opening Endoscopic (ICD-10-PCS; principal; 2019-01-18 07:30)
DX: K92.2 Gastrointestinal hemorrhage, unspecified (principal); I50.33 Acute on chronic diastolic (congestive) heart failure; I48.20 Chronic atrial fibrillation, unspecified; D62 Acute posthemorrhagic anemia; N17.9 Acute kidney failure, unspecified; I31.3 Pericardial effusion (noninflammatory); N39.0 Urinary tract infection, site not specified; R07.9 Chest pain, unspecified; Z87.442 Personal history of urinary calculi; K21.9 Gastro-esophageal reflux disease without esophagitis; F03.90 Unspecified dementia, unspecified severity, without behavioral disturbance, psychotic disturbance, mood disturbance, and anxiety; Z85.46 Personal history of malignant neoplasm of prostate; I73.9 Peripheral vascular disease, unspecified; Z96.653 Presence of artificial knee joint, bilateral; Z82.49 Family history of ischemic heart disease and other diseases of the circulatory system; N40.0 Benign prostatic hyperplasia without lower urinary tract symptoms; E66.9 Obesity, unspecified; Z68.34 Body mass index [BMI] 34.0-34.9, adult; K20.9 Esophagitis, unspecified; K29.70 Gastritis, unspecified, without bleeding; E87.6 Hypokalemia; B96.89 Other specified bacterial agents as the cause of diseases classified elsewhere; I11.0 Hypertensive heart disease with heart failure
CPT/HCPCS: 36415; 43235; 71045; 80048; 80053; 82270; 82550; 82553; 82948; 83540; 83735; 83880; 84466; 84484; 85025; 85045; 85610; 85730; 86850; 86900; 86920; 87086; 87186; 90732; 93005; 93306; 96372; 99284; J0696; J1756; J1817; J1940; J2001; J3480; J7030; J7050; J7512; P9016

== ENCOUNTER 2019-02-24 17:27 | Emergency (ER) | payer MEDICARE, OTHER ==
[~2019-02-24] VITALS: Ht 175.3 cm; Wt 106.6 kg
[~2019-02-24 17:27] MED LIST changes: +ABIRATERONE AC250 MG; +CEFTIN PO; +FERROUS SULFAT325 MG PO; +FLOMAX0.4 MG; +LOPRESSOR25 MG; +OMEPRAZOLE40 MG; +OMEPRAZOLE40 MG PO; +PREDNISONE10 MG
--- NOTE | 2019-02-24 17:55 | NUR ---
REC'D PT IN RM 8 [facility] FROM HOME FOR SHORTNESS OF BREATH FOR A COUPLE OF DAYS
[2019-02-24 18:44] LABS: BASOPHILS % 0.5 % (0.0-1.0); EOSINOPHILS # (AUTO) 0.3 (0.0-0.4); EOSINOPHILS % 4.1 % (0.0-6.0); HEMATOCRIT 33.2 % (38.2-49.6); HEMOGLOBIN 9.6 g/dL (14.0-18.0); LYMPHOCYTES # (AUTO) 1.3 (1.0-3.2); LYMPHOCYTES % 19.3 % (18.0-39.1); MEAN CORPUSCULAR HEMOGLOBIN 26.3 pg (28-32); MEAN CORPUSCULAR HGB CONC 28.9 g/dL (31-35); MONOCYTES # (AUTO) 0.4 (0.2-0.8); MONOCYTES % 5.5 % (4.4-11.3); NEUTROPHILS # (AUTO) 4.6 (2.1-6.9); NEUTROPHILS % 70.1 % (38.7-80.0); PLATELET COUNT 109 x10e3/uL (140-360); RED BLOOD COUNT 3.65 x10e6/uL (4.3-5.7); RED CELL DISTRIBUTION WIDTH 24.1 % (11.7-14.4)
[2019-02-24 18:55] LABS: ALANINE AMINOTRANSFERASE 8 IU/L (0-55); ALBUMIN 3.1 g/dL (3.5-5.0); ALBUMIN/GLOBULIN RATIO 1.1 (0.8-2.0); ALKALINE PHOSPHATASE 75 IU/L (40-150); ANION GAP 13.5 mmol/L (8-16); BLOOD UREA NITROGEN 18 mg/dL (7-26); BUN/CREATININE RATIO 18 (6-25); CALCIUM 9.6 mg/dL (8.4-10.2); CARBON DIOXIDE 28 mmol/L (22-29); CHLORIDE 101 mmol/L (98-107); CREATINE KINASE 14 IU/L (30-200); CREATININE, SERUM 0.99 mg/dL (0.72-1.25); EST GLOMERULAR FILTRATION RATE > 60 ML/MIN (60-); GLUCOSE 148 mg/dL (74-118); POTASSIUM 3.5 mmol/L (3.5-5.1); SODIUM 139 mmol/L (136-145)
--- NOTE | 2019-02-24 19:26 | Diagnostic Imaging Report ---
EXAMINATION: CHEST SINGLE (PORTABLE) INDICATION: ^SOB/LUNG CANCER ^[id number] ^[id number] COMPARISON: Chest radiograph 01/16/2019 FINDINGS: AP view TUBES and LINES: None. LUNGS: Lungs are well inflated. Subsegmental atelectasis in the right lower lobe, unchanged. Ill-defined opacity in the right suprahilar region, measuring 2 cm is more prominent when compared to prior exam. There is no evidence of pneumonia or pulmonary edema. PLEURA: No pleural effusion or pneumothorax. HEART AND MEDIASTINUM: Stable mild enlargement of the cardiac silhouette. Tortuous thoracic aorta with possible ectasia of the aortic arch, unchanged. BONES AND SOFT TISSUES: No acute osseous lesion. Soft tissues are unremarkable. UPPER ABDOMEN: No free air under the diaphragm. IMPRESSION: Indeterminate nodular opacity in the right suprahilar region, more conspicuous since 01/16/2019. Recommend further evaluation with CT chest with IV contrast. Signed by: Dr. Charlene Hill M.D. on 02/24/2019 7:23 PM
[2019-02-24 20:27] LABS: INR 0.91; PARTIAL THROMBOPLASTIN TIME 26.1 seconds (23.8-35.5); PROTHROMBIN TIME 12.7 seconds (11.9-14.5)
[2019-02-24 21:49] LABS: BILIRUBIN,URINE NEGATIVE (NEGATIVE); CLARITY,URINE SL CLOUDY (CLEAR); COLOR,URINE YELLOW (YELLOW); KETONES,URINE TRACE (NEGATIVE); LEUKOCYTE ESTERASE ,URINE SMALL (NEGATIVE); NITRITE,URINE POSITIVE (NEGATIVE); PROTEIN,URINE DIPSTICK NEGATIVE (NEGATIVE); URINE UROBILINOGEN 1 mg/dL (0.2 - 1)
[2019-02-24 22:02] LABS: AMORPHOUS SEDIMENT,URINE MODERATE (FEW); BACTERIA,URINE MANY /HPF
[2019-02-24] MEDS ORDERED: IOPAMIDOL 370 MG/ML 200 ML INFUS..BTL INJ ONE (22:12)
[2019-02-24] MEDS ORDERED: SODIUM CHLORIDE 0.9% 50ML 50 ML ONE (22:12)
[2019-02-24] MEDS ORDERED: CEFTRIAXONE SOD 1 GM/NS 50 ML 50 ML IV ONE (22:15)
[2019-02-24] MEDS ORDERED: CEFDINIR300 MG PO (22:31)
[2019-02-24 23:09] VITALS: BP 108/63
== END 2019-02-24 23:34 | disposition home or self-care (01) ==
LOC: ER 17:30
DX: R53.1 Weakness (principal); N39.0 Urinary tract infection, site not specified; D50.0 Iron deficiency anemia secondary to blood loss (chronic)
CPT/HCPCS: 36415; 71045; 80053; 81001; 82550; 82553; 83605; 84484; 85025; 85610; 85730; 87040; 87086; 87186; 87400; 93005; 99284; J0696; Q9967